=== PATIENT | male | born 1960 | race Hispanic/Latino ===

== ENCOUNTER 2017-11-24 09:55 | Inpatient (IN) | payer MEDICAID, OTHER ==
[2017-11-24 10:06] VITALS: BMI 26.4
[2017-11-24] MEDS ORDERED: Iodixanol 320 MG/ML 100 ML BOTTLE IV ONE (10:13)
--- NOTE | 2017-11-24 10:26 | C.PDOC ---
History Of Present Illness 56-year-old male, presents to the emergency department by ambulance with complaints of altered mental status. Patient was last known well at 22:00 last night. Patient states at 10:30 he developed tingling and numbness in the left arm, after which he tried sleeping, but could not. At 02:00 this morning, patient got up and felt tired, with weakness in his left arm and leg, causing him to fall, sustaining injuries to his left knee, and L chest wall. Patient denies any loss of consciousness or head injuries. Patient woke up in the morning, and symptoms persisted, resulting in him calling his brother, who called 911. En route, patient was awake and alert, with slurred speech and left facial droop. Time Seen by Provider: 11/24/17 10:00 Chief Complaint (Nursing): Weakness/Neurological Deficit History Per: Patient History/Exam Limitations: no limitations Onset/Duration Of Symptoms: Hrs Current Symptoms Are (Timing): Still Present Past Medical History Reviewed: Historical Data, Nursing Documentation, Vital Signs Vital Signs: Last Vital Signs Temp 99.1 F 11/24/17 09:55 Pulse 86 11/24/17 11:09 Resp 16 11/24/17 11:09 BP 194/113 H 11/24/17 11:09 Pulse Ox 98 11/24/17 11:09 Family History: States: No Known Family Hx - Social History Hx Alcohol Use: Yes Hx Substance Use: No - Immunization History Hx Tetanus Toxoid Vaccination: No Hx Influenza Vaccination: No Hx Pneumococcal Vaccination: No Review Of Systems Constitutional: Negative for: Fever, Chills Cardiovascular: Negative for: Chest Pain Respiratory: Negative for: Shortness of Breath Gastrointestinal: Negative for: Vomiting Musculoskeletal: Negative for: Back Pain Neurological: Positive for: Weakness, Numbness, Incoordination, Change in Speech , Altered Mental Status. Negative for: Headache Physical Exam - Physical Exam Appears: Non-toxic, No Acute Distress Skin: Warm, Dry, No Rash, Ecchymosis (Left chest wall and L knee) Head: Atraumatic, No Tenderness, No Swelling Eye(s): bilateral: Normal Inspection, PERRL, EOMI Oral Mucosa: Moist Tongue: Normal Appearing Neck: Normal ROM Chest: Symmetrical Cardiovascular: Rhythm Regular, No Murmur Respiratory: Normal Breath Sounds, No Accessory Muscle Use Gastrointestinal/Abdominal: Soft, No Tenderness Extremity: No Deformity, No Swelling Pulses: Left Carotid: Normal, Right Carotid: Normal Neurological/Psych: Oriented x3, No Normal Speech (Slurred speech), Normal Cognition, No Normal Motor (weakness of left arm and leg), Normal Sensation, Dysarthria, Other (Left facial droop. (+)weakness and lack of coordination in L arm and L leg. See NIH) Extremity: Right: No Drift, Left: Drift Before 10 Secs, Upper: No Drift, Drift Before 10 Secs, Lower: No Drift, Drift Before 10 Secs ED Course And Treatment - Laboratory Results Result Diagrams: 11/24/17 10:33 11/24/17 10:34 Lab Interpretation: No Acute Changes Interpretation Of Abnormal: Mild elevation of WBC and glucose ECG: Interpreted By Ny ECG Rhythm: Sinus Rhythm (with anterior and inferior infarcts) ECG Interpretation: Abnormal O2 Sat by Pulse Oximetry: 97 (RA) Pulse Ox Interpretation: Normal - Radiology CXR: Interpreted by Ny CXR Interpretation: Yes: No Acute Disease - CT Scan/US CT Head Other Rad Studies (CT/US): Read By Radiologist, Radiology Report Reviewed CT/US Interpretation: Accession No. : [id number]. Patient Name / ID : NOMAN ANDERSON / [id number]. Exam Date : 11/24/2017 10:08:32 ( Approved ). Study Comment : Sex / Age : M / 56Y. Creator : Mirella Gonzalez MD. Dictator : Mirella Gonzalez MD. Customs Manager : Fuel Cell Binder : Mirella Gonzalez MD. Approver2 : Report Date : 11/24/2017 10:25:59. My Comment : . PROCEDURE: CT HEAD WITHOUT CONTRAST. HISTORY: Code Stroke. COMPARISON: None available. TECHNIQUE: Axial computed tomography images were obtained through the head/brain without intravenous contrast. Radiation dose: Total exam DLP = 1013.42 mGy-cm. This CT exam was performed using one or more of the following dose reduction techniques: Automated exposure control, adjustment of the mA and/or kV according to patient size, and/or use of iterative reconstruction technique. FINDINGS: HEMORRHAGE: No intracranial hemorrhage. BRAIN: Diffuse atrophy with prominence of the ventricles and sulci noted. No mass effect or edema. Numerous sub cm lacunar infarcts including bilateral basal ganglia and thalami. Scattered periventricular and subcortical white matter hypodensities, which are nonspecific, but often seen with chronic microvascular ischemic disease. Please note that MRI with diffusion imaging is more sensitive in the detection of acute ischemic event. VENTRICLES: No hydrocephalus. CALVARIUM: Unremarkable. PARANASAL SINUSES: Mucosal thickening of the left greater than right maxillary sinuses. MASTOID AIR CELLS : Unremarkable as visualized. No inflammatory changes. OTHER FINDINGS: Opacification of bilateral external auditory canals, likely cerumen. IMPRESSION : Numerous sub cm lacunar infarcts including bilateral basal ganglia and thalami. Scattered periventricular and subcortical white matter hypodensities, which are nonspecific, but often seen with chronic microvascular ischemic disease. Please note that MRI with diffusion imaging is more sensitive in the detection of acute ischemic event. Findings discussed with Dr. Rodriguez on at 10:[address] Neck/Brain Other Rad Studies (CT/US): Read By Radiologist, Radiology Report Reviewed CT/US Interpretation: Accession No. : [id number]. Patient Name / ID : NOMAN ANDERSON / [id number]. Exam Date : 11/24/2017 10:16:35 ( Approved ). Study Comment : Sex / Age : M / 56Y. Creator : Cheng Akers MD. Dictator : Customs Manager : Fuel Cell Binder : Cheng Akers MD. Approver2 : Report Date : 11/24/2017 10:45:10. My Comment : . PROCEDURE: CTA of the neck neck and brain dated 11/24/2017. HISTORY: Stroke alert. COMPARISON: Correlation made with concurrent CT scan brain. TECHNIQUE: Contiguous helical/ transaxial images of the neck were obtained from the level of the skull-base to the superior mediastinum in the arteriographic phase of enhancement. Coronal and sagittal reformats or also generated. IV contrast dose: 100 cc Visipaque 320. Radiation Dose - DLP: 634.27 mGy-cm. This CT exam was performed using one or more of the following dose reduction techniques: Automated exposure control, adjustment of the mA and/or kV according to patient size, and/or use of iterative reconstruction technique. FINDINGS: There is mild partially calcified atherosclerotic plaque seen along aortic arch and to a lesser degree at the origins of the great vessels. The the left common carotid artery is patent. There are partially calcified atherosclerotic plaque changes seen at the distal left common carotid artery/bifurcation extending into the proximal left internal carotid artery resulting in narrowing estimated at approximately 60 %. The right common carotid artery is widely patent with some minor plaque seen along the carotid bifurcation that does not result in any significant stenosis. There is a small plaques along the distal left internal carotid artery that prior to entering the petrous canal. The remaining distal internal carotid arteries including the petrous, cavernous, and supraclinoid segments are widely patent despite some minimal calcified plaque along the left carotid siphon. There is mild asymmetry of the vertebral arteries left-sided which is slightly larger in caliber - more dominant than the right of. Basilar artery is patent. The visualized major branches of the [place] also patent. . The distal anterior middle and posterior cerebral arteries are relatively symmetric. No evidence of large aneurysm nor vascular malformation. Mild to significant multilevel degenerative spondylosis of the cervical spine. The the. IMPRESSION: Atherosclerotic plaque changes involving the left carotid bifurcation and extending into the left internal carotid artery. Changes result in narrowing estimated at approximately 60 %. Carotid Doppler ultrasound could be performed to confirm percent diameter stenosis. No evidence of occlusion or significant stenosis of the visualized cerebral circulation as described. See above discussion for additional details and findings. Progress Note: Patient presents with evidence of an ischemic cerebral infarct that occurred outside of the window for TPA administraion. CT angio and MRI ordered. Reevaluation Time: 11:48 Reassessment Condition: Unchanged - Physician Consult Information Physician Contacted: Kaleigh Mei Outcome Of Conversation: She evaluated patient in ED. Case referred to the interventional radiologist. Patient to be admitted to Telemetry. Patient to be admitted to the hospitalist service. NIHSS Stroke Scale 2 - Date/Time Evaluation Performed Date Performed: 11/24/17 Time Performed: 10:10 When Was NIHSS Performed: Baseline - How Severe is the Stroke Level of Consciousness: 0=Alert LOC to Questions: 0=Both comments correct LOC to commands: 0=Obeys both correctly Best Gaze: 0=Normal Visual: 0=No visual loss Facial: 2=Partial (lower face paralysis) Motor Arm - Left: 1=Drift noted before 10 sec Motor Arm - Right: 0=No drift Motor Leg - Left: 1=Drift before 5 sec Motor Leg - Right: 0=No drift Limb Ataxia: 1=Present Upper or Lower Sensory: 0=Normal Best Language: 0=No aphasia Dysarthia: 1=Mild to moderate slurring Extinction & Inattention (Neglect): 0=Normal, no object Score: 6 Severity Of Stroke: 5-15 = Moderate Stroke Medical Decision Making Medical Decision Making: Plan: * Type and Screen * CT Angio/Chest * EKG * CMP, HGB A1C, Lipid Panel, Trop * CBC, PTT/PT * Chest X-Ray * Aspirin * Reassess and Disposition Disposition - Disposition Disposition: HOSPITALIZED Disposition Time: 11:51 Condition: STABLE - POA Present On Arrival: None - Clinical Impression Clinical Impression: Ischemic stroke - Scribe Statement The provider has reviewed the documentation as recorded by the Scribe (Christel Roche) All medical record entries made by the Scribe were at my direction and personally dictated by me. I have reviewed the chart and agree that the record accurately reflects my personal performance of the history, physical exam, medical decision making, and the department course for this patient. I have also personally directed, reviewed, and agree with the discharge instructions and disposition.
[2017-11-24 10:35] LABS: PROTHROMBIN TIME 11.3 SECONDS (9.7-12.2)
[2017-11-24 10:36] LABS: BASO # 0.1 K/uL (0.0-0.2); BASO % 0.8 % (0.0-2.0); EOS % 0.2 % (0.0-4.0); HEMOGLOBIN 16.7 g/dL (12.0-18.0); LYMPH # 1.3 K/uL (1.0-4.3); LYMPH % 10.5 % (20.0-40.0); MEAN CELL VOLUME 93.5 fL (80.0-94.0); MEAN CORPUSCULAR HEMOGLOBIN 33.3 pg (27.0-31.0); MEAN CORPUSCULAR HGB CONC 35.6 g/dL (33.0-37.0); MEAN PLATELET VOLUME 7.2 fL (7.2-11.7); MONO # 0.9 K/uL (0.0-0.8); MONO % 7.2 % (0.0-10.0); NEUT # 10.1 K/uL (1.8-7.0); NEUT % 81.3 % (50.0-75.0); NRBC % 0.1 % (0.0-2.0); RED CELL DISTRIBUTION WIDTH 13.3 % (11.5-14.5); WHITE BLOOD COUNT 12.4 K/uL (4.8-10.8)
[2017-11-24 10:46] LABS: ALB/GLOB RATIO 1.1 (1.0-2.1); ALBUMIN 4.3 g/dL (3.5-5.0); ALT/SGPT 24 U/L (21-72); AST/SGOT 63 U/L (17-59); BLOOD UREA NITROGEN 11 mg/dL (9-20); CALCIUM 9.1 mg/dl (8.6-10.4); GFR AFRICAN-AMERICAN > 60; GFR NON-AFRICAN AMERICAN > 60; HDL CHOLESTEROL 60 mg/dL (30-70)
--- NOTE | 2017-11-24 10:46 | CT ---
PROCEDURE: CTA of the neck neck and brain dated 11/24/2017. HISTORY: Stroke alert COMPARISON: Correlation made with concurrent CT scan brain. TECHNIQUE: Contiguous helical/transaxial images of the neck were obtained from the level of the skull-base to the superior mediastinum in the arteriographic phase of enhancement. Coronal and sagittal reformats or also generated. IV contrast dose: 100 cc Visipaque 320 Radiation Dose - DLP: 634.27 mGy-cm This CT exam was performed using one or more of the following dose reduction techniques: Automated exposure control, adjustment of the mA and/or kV according to patient size, and/or use of iterative reconstruction technique. FINDINGS: There is mild partially calcified atherosclerotic plaque seen along aortic arch and to a lesser degree at the origins of the great vessels. The the left common carotid artery is patent. There are partially calcified atherosclerotic plaque changes seen at the distal left common carotid artery/bifurcation extending into the proximal left internal carotid artery resulting in narrowing estimated at approximately 60 %. The right common carotid artery is widely patent with some minor plaque seen along the carotid bifurcation that does not result in any significant stenosis. There is a small plaques along the distal left internal carotid artery that prior to entering the petrous canal. The remaining distal internal carotid arteries including the petrous, cavernous, and supraclinoid segments are widely patent despite some minimal calcified plaque along the left carotid siphon. There is mild asymmetry of the vertebral arteries left-sided which is slightly larger in caliber - more dominant than the right of. Basilar artery is patent. The visualized major branches of the [place] also patent. . The distal anterior middle and posterior cerebral arteries are relatively symmetric. No evidence of large aneurysm nor vascular malformation. Mild to significant multilevel degenerative spondylosis of the cervical spine. The the IMPRESSION: Atherosclerotic plaque changes involving the left carotid bifurcation and extending into the left internal carotid artery. Changes result in narrowing estimated at approximately 60 %. Carotid Doppler ultrasound could be performed to confirm percent diameter stenosis No evidence of occlusion or significant stenosis of the visualized cerebral circulation as described See above discussion for additional details and findings.
[2017-11-24 10:57] LABS: LDL CHOLESTEROL 92 mg/dL (0-129)
--- NOTE | 2017-11-24 12:23 | CP.PCM.CON ---
History of Present Illness - History of Present Illness History of Present Illness: 56 yr old male who came in as code stroke, but not TPA candidate due to onset of symptoms outside the TPA window. Maria Del Rosario si a 56 yr old amle who started to have left arm and leg weakness last night at 22:00, with tingling and numbness. He went back to sleep, and then wokr up at 2 am, tried to get up and fell due to weakness, sustaining injuries to left knee, hand and chest wall. There was no report of tonic clonic activity or urinary incontinence. HE woke up this morning, still on the ground and called his brother at about 930 am. When his family found him, he was on the ground with dysarthria and left facial droop, which persists. On my exam, patient was answering questions but was dysarthric. NIH: stroke scale is 11 points. he has sensory and motor loss. on my exam, different from [facility] ER attending, he had decreased ft, pin in the left upper and lower extremity. PMH/PSH: FH/SH: alcohol use, no tobacco. All: nkda. On exam: aaox3. pupils 3mm-2mm with light. eomi. Cn 2-12 normal. +left facial droop. motor: tone normal. strength: left valuation consultant is 2/5, and he is able to lift arm, but it falls to bed within 3 seconds. left leg quite weak at 3/5, with drift within 3 seconds. sensory: extinguishes on left side, arm and leg. Gait not tested. F/n : dysmetria on left arm. +2 dtr ul and ll bl. Toes downgoing, no clonus. Past Patient History - Past Social History Smoking Status: Heavy Smoker > 10 Cigarettes Daily - PSYCHIATRIC Hx Substance Use: No - SURGICAL HISTORY Hx Surgeries: No Meds Allergies/Adverse Reactions: Allergies Allergy/AdvReac Type Severity Reaction Status Date / Time No Known Allergies Allergy Verified 11/24/17 10:04 Results - Vital Signs Recent Vital Signs: Last Vital Signs Temp 99.1 F 11/24/17 09:55 Pulse 84 11/24/17 11:54 Resp 20 11/24/17 11:54 BP 186/107 H 11/24/17 11:54 Pulse Ox 98 11/24/17 11:54 - Labs Result Diagrams: 11/24/17 10:33 11/24/17 10:34 Labs: Laboratory Results - last 24 hr 11/24/17 11/24/17 11/24/17 10:03 10:08 10:32 WBC RBC Hgb Hct MCV MCH MCHC RDW Plt Count MPV Neut % (Auto) Lymph % (Auto) [place] % (Auto) Eos % (Auto) Baso % (Auto) Neut # (Auto) Lymph # (Auto) [place] # (Auto) Eos # (Auto) Baso # (Auto) PT 11.3 INR 1.0 APTT 30 Sodium Potassium Chloride Carbon Dioxide Anion Gap BUN Creatinine Est GFR ( Amer) Est GFR (Non-Af Amer) POC Glucose (mg/dL) 158 H Random Glucose Calcium Total Bilirubin AST ALT Alkaline Phosphatase Troponin I Total Protein Albumin Globulin Albumin/Globulin Ratio Triglycerides Cholesterol LDL Cholesterol Direct HDL Cholesterol Blood Type A POSITIVE Antibody Screen Negative 11/24/17 11/24/17 10:33 10:34 WBC 12.4 H RBC 5.00 Hgb 16.7 Hct 46.8 MCV 93.5 MCH 33.3 H MCHC 35.6 RDW 13.3 Plt Count 240 MPV 7.2 Neut % (Auto) 81.3 H Lymph % (Auto) 10.5 L [place] % (Auto) 7.2 Eos % (Auto) 0.2 Baso % (Auto) 0.8 Neut # (Auto) 10.1 H Lymph # (Auto) 1.3 [place]ven # (Auto) 0.9 H Eos # (Auto) 0.0 Baso # (Auto) 0.1 PT INR APTT Sodium 133 Potassium 4.2 Chloride 95 L Carbon Dioxide 27 Anion Gap 16 BUN 11 Creatinine 0.8 Est GFR ( Amer) > 60 Est GFR (Non-Af Amer) > 60 POC Glucose (mg/dL) Random Glucose 167 H Calcium 9.1 Total Bilirubin 1.0 AST 63 H ALT 24 Alkaline Phosphatase 86 Troponin I 0.0170 Total Protein 8.1 Albumin 4.3 Globulin 3.8 Albumin/Globulin Ratio 1.1 Triglycerides 48 Cholesterol 168 LDL Cholesterol Direct 92 HDL Cholesterol 60 Blood Type Antibody Screen - Imaging and Cardiology CT scan - head Status: Image reviewed by me, Report reviewed by me (Ct head: shows old lacune in left basal ganglia. ) Additional comment: CTA : shows 60% occlusion in the Proximal left ica. Right Ica is normal. Left sided vertbral is larger. Assessment & Plan - Assessment and Plan (Free Text) Assessment: 56 yr old male with new onset what appears to be ischemic/embolic right mca stroke, with significant stenosis of the left ICA, who is not TPA candidate at this time. neurointerventionalist was called and he does not believe the stenosis is of a caliber that would benefit from IV tpa. Plan: 1. Admit to tele. 2. Keep BP at 180-190/90 3. IV fluids with normal saline. 4. MRI brain without contrast. 5. Dysphagia/speech/physical therapy 6. start aspirin at 325 mg po daily. 7. Vascular consult to evaluate stenosis. thank you. Our team will follow.
--- NOTE | 2017-11-24 12:27 | RAD ---
HISTORY: stroke alert COMPARISON: None available. TECHNIQUE: Chest, one view. FINDINGS: Examination limited by habitus and patient obliquity. LUNGS: Right costophrenic angles excluded from view. Right hilar/infrahilar patchy opacities, possibly atelectasis or infiltrate. Correlate clinically. Please note that chest x-ray has limited sensitivity for the detection of pulmonary masses. PLEURA: No significant pleural effusion identified. No definite pneumothorax . CARDIOVASCULAR: Heart size appears within normal limits. OSSEOUS STRUCTURES: No acute osseous abnormality identified. VISUALIZED UPPER ABDOMEN: Unremarkable. OTHER FINDINGS: None. IMPRESSION: Right hilar/infrahilar patchy opacities, possibly atelectasis or infiltrate. Correlate clinically.
--- NOTE | 2017-11-24 12:57 | CP.PCM.HP ---
<Sourav Best - Last Filed: 11/24/17 18:57> History of Present Illness - History of Present Illness History of Present Illness: PGY-1 H&P for Dr. Carreon CC: Weakness This is a 56 year old male with no PMHx who comes in with left sided weakness. Patient reports that at around 11 PM last night, he felt some tingling sensation on the left side of his face around his jaw. He drank some water and went to sleep. Patient then woke up at 2 AM this morning and tried to get out of bed. Patient immediately proceeded to fall down and hit the left side of his body. Patient could not get himself up. He laid there until he was able to call his brother who lives nearby and called an ambulance. Patient reports that the paresthesia has improved but reports continued weakness. Denies changes in vision, headache, loss of consciousness, dizziness, chest pain, dyspnea, palpitations. Patient reports that he is tired because of his poor sleep. PMHx: Denies PSHx: Denies Allergies: NKA Social: Current smoker 1/2 ppd for the last 20-30 years. Social drinker. Denies drugs. Lives alone and is not employed. Family Hx: Mother with two TIA PMD: denies Home meds: denies Present on Admission - Present on Admission Any Indicators Present on Admission: No Review of Systems - Constitutional Constitutional: absent: Chills, Fever, Headache - EENT Eyes: absent: Change in Vision Ears: absent: Decreased Hearing Nose/Mouth/Throat: absent: Nasal Congestion - Cardiovascular Cardiovascular: absent: Chest Pain - Respiratory Respiratory: Cough. absent: Dyspnea, Wheezing - Gastrointestinal Gastrointestinal: absent: Abdominal Pain, Constipation, Diarrhea, Nausea, Vomiting - Genitourinary Genitourinary: absent: Dysuria - Musculoskeletal Musculoskeletal: Muscle Weakness - Integumentary Integumentary: absent: Rash - Neurological Neurological: Tremor, Weakness. absent: Dizziness - Psychiatric Psychiatric: absent: Anxiety - Endocrine Endocrine: absent: Palpitations Past Patient History - Past Social History Smoking Status: Heavy Smoker > 10 Cigarettes Daily - PSYCHIATRIC Hx Substance Use: No - SURGICAL HISTORY Hx Surgeries: No Meds Allergies/Adverse Reactions: Allergies Allergy/AdvReac Type Severity Reaction Status Date / Time No Known Allergies Allergy Verified 11/24/17 10:04 Physical Exam - Constitutional Appears: No Acute Distress - Head Exam Head Exam: ATRAUMATIC, NORMOCEPHALIC - Eye Exam Additional comments: Right pupil larger than left pupil. They were both reactive to light. EOMI - ENT Exam ENT Exam: Mucous Membranes Moist - Respiratory Exam Additional comments: Coarse breath sounds bilaterally - Cardiovascular Exam Cardiovascular Exam: REGULAR RHYTHM, +S1, +S2 - GI/Abdominal Exam GI & Abdominal Exam: Normal Bowel Sounds, Soft. absent: Distended, Guarding, Tenderness - Extremities Exam Extremities exam: Positive for: pedal pulses present. Negative for: pedal edema Additional comments: Injuries seen in all extremities s/p fall Poor feet care Ulcer on sole of left foot - Neurological Exam Neurological exam: Alert, Oriented x3 Additional comments: CN II-XII intact with exception of left sided facial droop and weakness of left sided facial muscles. Muscle strength diminished on left upper and lower extremities compared to the right. Poor endurance with drifting seen on the left upper and lower extremities. Sensations diminished on the left versus the right upper and lower extremities. Abnormal heel to kitchen with the left leg. Abnormal finger to nose test on the left. Equivocal plantar responses No clonus. Right foot contracted. - Skin Skin Exam: Dry, Warm Additional comments: Fall injuries sustained on all extremities Poor feet care with ulcer on sole of left foot Results - Vital Signs Recent Vital Signs: Last Vital Signs Temp 99.1 F 11/24/17 09:55 Pulse 84 11/24/17 11:54 Resp 20 11/24/17 11:54 BP 186/107 H 11/24/17 11:54 Pulse Ox 98 11/24/17 11:54 - Labs Result Diagrams: 11/24/17 10:33 11/24/17 10:34 Labs: Laboratory Results - last 24 hr 11/24/17 11/24/17 11/24/17 10:03 10:08 10:32 WBC RBC Hgb Hct MCV MCH MCHC RDW Plt Count MPV Neut % (Auto) Lymph % (Auto) [place] % (Auto) Eos % (Auto) Baso % (Auto) Neut # (Auto) Lymph # (Auto) [place] # (Auto) Eos # (Auto) Baso # (Auto) PT 11.3 INR 1.0 APTT 30 Sodium Potassium Chloride Carbon Dioxide Anion Gap BUN Creatinine Est GFR ( Amer) Est GFR (Non-Af Amer) POC Glucose (mg/dL) 158 H Random Glucose Calcium Total Bilirubin AST ALT Alkaline Phosphatase Troponin I Total Protein Albumin Globulin Albumin/Globulin Ratio Triglycerides Cholesterol LDL Cholesterol Direct HDL Cholesterol Blood Type A POSITIVE Antibody Screen Negative 11/24/17 11/24/17 10:33 10:34 WBC 12.4 H RBC 5.00 Hgb 16.7 Hct 46.8 MCV 93.5 MCH 33.3 H MCHC 35.6 RDW 13.3 Plt Count 240 MPV 7.2 Neut % (Auto) 81.3 H Lymph % (Auto) 10.5 L [place] % (Auto) 7.2 Eos % (Auto) 0.2 Baso % (Auto) 0.8 Neut # (Auto) 10.1 H Lymph # (Auto) 1.3 [place] # (Auto) 0.9 H Eos # (Auto) 0.0 Baso # (Auto) 0.1 PT INR APTT Sodium 133 Potassium 4.2 Chloride 95 L Carbon Dioxide 27 Anion Gap 16 BUN 11 Creatinine 0.8 Est GFR ( Amer) > 60 Est GFR (Non-Af Amer) > 60 POC Glucose (mg/dL) Random Glucose 167 H Calcium 9.1 Total Bilirubin 1.0 AST 63 H ALT 24 Alkaline Phosphatase 86 Troponin I 0.0170 Total Protein 8.1 Albumin 4.3 Globulin 3.8 Albumin/Globulin Ratio 1.1 Triglycerides 48 Cholesterol 168 LDL Cholesterol Direct 92 HDL Cholesterol 60 Blood Type Antibody Screen Assessment & Plan - Assessment and Plan (Free Text) Plan: Code Stroke Neurology consult, Dr. Mei, help appreciated Head CT: Diffuse atrophy with prominence of the ventricles and sulci noted. No mass effect or edema. Numerous sub cm lacunar infarcts including bilateral basal ganglia and thalami. Scattered periventricular and subcortical white matter hypodensities, which are nonspecific, but often seen with chronic microvascular ischemic disease. Head/Neck CTA: There are partially calcified atherosclerotic plaque changes seen at the distal left common carotid artery/bifurcation extending into the proximal left internal carotid artery resulting in narrowing estimated at approximately 60 %. Vascular surgery consult Dr. Rosario, help appreciated f/u MRI--patient refused Lipid panel: unremarkable Crestor 40 mg PO HS PT/OT Swallow Eval (NPO until passes) Permissive Hypertension SBP 180-190s. Half normal saline 40 cc/hr Prophylactic Measure NPO until swallow eval Heparin 5000 units SC Q8 Accuchecks Q6H since patient is NPO Case DW Dr. Velma Best PGY-1 <Fuad Carreon H - Last Filed: 11/25/17 07:33> Results - Vital Signs Recent Vital Signs: Last Vital Signs Temp 98.7 F 11/25/17 04:55 Pulse 79 11/25/17 04:55 Resp 20 11/25/17 04:55 BP 189/104 H 11/25/17 04:55 Pulse Ox 98 11/25/17 04:55 - Labs Result Diagrams: 11/24/17 10:33 11/24/17 10:34 Labs: Laboratory Results - last 24 hr 11/24/17 11/24/17 11/24/17 10:03 10:08 10:32 WBC RBC Hgb Hct MCV MCH MCHC RDW Plt Count MPV Neut % (Auto) Lymph % (Auto) [place] % (Auto) Eos % (Auto) Baso % (Auto) Neut # (Auto) Lymph # (Auto) [place] # (Auto) Eos # (Auto) Baso # (Auto) PT 11.3 INR 1.0 APTT 30 Sodium Potassium Chloride Carbon Dioxide Anion Gap BUN Creatinine Est GFR ( Amer) Est GFR (Non-Af Amer) POC Glucose (mg/dL) 158 H Random Glucose Calcium Total Bilirubin AST ALT Alkaline Phosphatase Total Creatine Kinase CK-MB (Mass) Troponin I Total Protein Albumin Globulin Albumin/Globulin Ratio Triglycerides Cholesterol LDL Cholesterol Direct HDL Cholesterol Free T4 TSH 3rd Generation Urine Opiates Screen Urine Methadone Screen Ur Barbiturates Screen Ur Phencyclidine Scrn Ur Amphetamines Screen U Benzodiazepines Scrn U Oth Cocaine Metabols U Cannabinoids Screen Blood Type A POSITIVE Antibody Screen Negative 11/24/17 11/24/17 11/24/17 10:33 10:34 13:47 WBC 12.4 H RBC 5.00 Hgb 16.7 Hct 46.8 MCV 93.5 MCH 33.3 H MCHC 35.6 RDW 13.3 Plt Count 240 MPV 7.2 Neut % (Auto) 81.3 H Lymph % (Auto) 10.5 L [place] % (Auto) 7.2 Eos % (Auto) 0.2 Baso % (Auto) 0.8 Neut # (Auto) 10.1 H Lymph # (Auto) 1.3 [place] # (Auto) 0.9 H Eos # (Auto) 0.0 Baso # (Auto) 0.1 PT INR APTT Sodium 133 Potassium 4.2 Chloride 95 L Carbon Dioxide 27 Anion Gap 16 BUN 11 Creatinine 0.8 Est GFR ( Amer) > 60 Est GFR (Non-Af Amer) > 60 POC Glucose (mg/dL) Random Glucose 167 H Calcium 9.1 Total Bilirubin 1.0 AST 63 H ALT 24 Alkaline Phosphatase 86 Total Creatine Kinase CK-MB (Mass) Troponin I 0.0170 Total Protein 8.1 Albumin 4.3 Globulin 3.8 Albumin/Globulin Ratio 1.1 Triglycerides 48 Cholesterol 168 LDL Cholesterol Direct 92 HDL Cholesterol 60 Free T4 TSH 3rd Generation 9.13 H Urine Opiates Screen Negative Urine Methadone Screen Negative Ur Barbiturates Screen Negative Ur Phencyclidine Scrn Negative Ur Amphetamines Screen Negative U Benzodiazepines Scrn Negative U Oth Cocaine Metabols Negative U Cannabinoids Screen Negative Blood Type Antibody Screen 11/24/17 11/24/17 11/24/17 15:11 19:39 21:38 WBC RBC Hgb Hct MCV MCH MCHC RDW Plt Count MPV Neut % (Auto) Lymph % (Auto) [place] % (Auto) Eos % (Auto) Baso % (Auto) Neut # (Auto) Lymph # (Auto) [place] # (Auto) Eos # (Auto) Baso # (Auto) PT INR APTT Sodium Potassium Chloride Carbon Dioxide Anion Gap BUN Creatinine Est GFR ( Amer) Est GFR (Non-Af Amer) POC Glucose (mg/dL) 125 H Random Glucose Calcium Total Bilirubin AST ALT Alkaline Phosphatase Total Creatine Kinase 1114 H CK-MB (Mass) 2.89 Troponin I 0.0170 Total Protein Albumin Globulin Albumin/Globulin Ratio Triglycerides Cholesterol LDL Cholesterol Direct HDL Cholesterol Free T4 1.05 TSH 3rd Generation Urine Opiates Screen Urine Methadone Screen Ur Barbiturates Screen Ur Phencyclidine Scrn Ur Amphetamines Screen U Benzodiazepines Scrn U Oth Cocaine Metabols U Cannabinoids Screen Blood Type Antibody Screen 11/24/17 11/25/17 23:18 06:34 WBC RBC Hgb Hct MCV MCH MCHC RDW Plt Count MPV Neut % (Auto) Lymph % (Auto) [place] % (Auto) Eos % (Auto) Baso % (Auto) Neut # (Auto) Lymph # (Auto) [place] # (Auto) Eos # (Auto) Baso # (Auto) PT INR APTT Sodium Potassium Chloride Carbon Dioxide Anion Gap BUN Creatinine Est GFR ( Amer) Est GFR (Non-Af Amer) POC Glucose (mg/dL) 120 H Random Glucose Calcium Total Bilirubin AST ALT Alkaline Phosphatase Total Creatine Kinase 1057 H CK-MB (Mass) 3.15 Troponin I 0.0180 Total Protein Albumin Globulin Albumin/Globulin Ratio Triglycerides Cholesterol LDL Cholesterol Direct HDL Cholesterol Free T4 TSH 3rd Generation Urine Opiates Screen Urine Methadone Screen Ur Barbiturates Screen Ur Phencyclidine Scrn Ur Amphetamines Screen U Benzodiazepines Scrn U Oth Cocaine Metabols U Cannabinoids Screen Blood Type Antibody Screen Attending/Attestation - Attestation I have personally seen and examined this patient.: Yes I have fully participated in the care of the patient.: Yes I have reviewed all pertinent clinical information: Yes Notes (Text): 11/25/17 07:33 Medical attending: Patient was seen and examined in bed 7 of the ER yesterday. I saw the patient with the medical payment poster. I reviewed the above note by the resident and agree Upon inspection the patient immediately has left facial drooping he is able to function with his right hand and his right arm however his left hand grasp is very minimal. He's is able to hold his left arm up for greater than 5 seconds however he has substantial drifting and he really has to try. He almost touches the bed with his left arm His right leg is able to elevate for greater than 5 seconds, however his left leg medially drops to the bed when I lifted. There is a very strong history of smoking he's been smoking since young age. From what he tells me he does not see a physician regularly. He might have diabetes, he is unsure. The lab work that we got showed an elevated blood sugar Very likely he's had ongoing hypertension as well. A CT scan of the head was done in the emergency room it did not show any areas of hemorrhage or mass effect or edema however did report a lot of lacunar infarcts. There was an MRI ordered by neurology however when the patient was brought down to the MRI he could not tolerate this and was brought back to the emergency room. I explained to the patient that considering the weakness that he 's having that at some point he needs to really consider going back down to the MRI and he says that he understands he's just very frightened by the sound Head and neck CTA was done and suggested that he had some 60% blockage of atherosclerotic plaque in the carotid areas. We will get a carotid Doppler as well as get as well as a vascular evaluation The patient will have additional cardiac enzymes as well as echocardiogram He does have elevated blood pressure, will monitor this for the time being. And slowly over time we could try adding small doses of medication to help slowly lower the blood pressure Thank you very much, Fuad Carreon
[2017-11-24 14:12] LABS: BARBITURATES, UR NEGATIVE (NEGATIVE); BENZODIAZEPINES, UR NEGATIVE (NEGATIVE); OPIATES, UR NEGATIVE (NEGATIVE); PHENCYCLIDINE, UR NEGATIVE (NEGATIVE)
[2017-11-24] MEDS ORDERED: Sodium Chloride 0.45% 1,000 ML IV SCH (15:45)
--- NOTE | 2017-11-24 18:07 | CP.PCM.CON ---
History of Present Illness - History of Present Illness History of Present Illness: Vascular Surgery Consult for Dr. Rosario Reason for Consult: Left carotid stenosis 56 M with no PMHx who presents to [facility] for s/p fall and left sided weakness. Patient reports that last night, he felt some tingling on the left side of his face. Patient went to bed but then woke up at 2 AM this morning. He tried to get out of bed and subsequently fell. Upon falling he hit the left flank on the dresser. Patient sat on the floor until he was able to call his brother. He brother ran over to the house and alled an ambulance. Denies loss of consciousness, dizziness/lightheadedness, headache, chest pain, dyspnea, palpitations, abd pain, nausea/vomiting, diarrhea, incontinence. CT of head shows lacunar infarct. Head/neck MRA suggest 60% of left ICA. PMH: Denies Meds: denies Allergy: NKDA PSH: Denies Family: Mother with two TIA Social: Current smoker 1/2 ppd for the last 20-30 years. Social drinker. Denies drugs. Lives alone and is not employed. Review of Systems - Review of Systems All systems: reviewed and no additional remarkable complaints except (as per HPI ) Past Patient History - Past Social History Smoking Status: Heavy Smoker > 10 Cigarettes Daily - PSYCHIATRIC Hx Substance Use: No - SURGICAL HISTORY Hx Surgeries: No Meds Allergies/Adverse Reactions: Allergies Allergy/AdvReac Type Severity Reaction Status Date / Time No Known Allergies Allergy Verified 11/24/17 10:04 - Medications Medications: Current Medications Aspirin (Ecotrin) 325 mg PO DAILY [facility] Sodium Chloride (Sodium Chloride 0.45%) 1,000 mls @ 40 mls/hr IV .Q24H [facility] Last Admin: 11/24/17 15:45 Dose: 40 mls/hr Rosuvastatin Calcium (Crestor) 40 mg PO [facility] Physical Exam - Constitutional Appears: No Acute Distress - Head Exam Head Exam: ATRAUMATIC, NORMOCEPHALIC - Eye Exam Eye Exam: EOMI Pupil Exam: PERRL - ENT Exam ENT Exam: Mucous Membranes Moist - Neck Exam Neck exam: Positive for: Full Rom - Respiratory Exam Respiratory Exam: NORMAL BREATHING PATTERN - Cardiovascular Exam Cardiovascular Exam: REGULAR RHYTHM - GI/Abdominal Exam GI & Abdominal Exam: Normal Bowel Sounds, Soft. absent: Tenderness - Extremities Exam Extremities exam: Positive for: normal capillary refill, pedal pulses present. Negative for: calf tenderness - Back Exam Additional comments: Left flank with large bruise/wound - Neurological Exam Neurological exam: Alert, Oriented x3 - Expanded Neurological Exam Expanded Patient oriented to: person, place, time Speech: Fluid Speech Cranial nerves: EOM's Intact: Normal, Facial [place] w/Forehead Movement: Normal , Facial [place] w/o Forehead Movement: Normal, Facial Sensation: Normal, Gag Reflex: Normal, Nystagmus: Normal, Tongue Deviation: Normal Neuro motor strength exam: Left Upper Extremity: 4, Right Upper Extremity: 5, Left Lower Extremity: 3, Right Lower Extremity: 5 Coma Scale Eye Opening: SPONTANEOUS Coma Scale Motor Response: OBEYS COMMANDS Coma Scale Verbal: Oriented Coma Scale Total: 15 - Psychiatric Exam Psychiatric exam: Normal Affect, Normal Mood - Skin Skin Exam: Dry, Warm Additional comments: left hand dorsum with wound from fall bilateral knees with mild swelling Results - Vital Signs Recent Vital Signs: Last Vital Signs Temp 99.1 F 11/24/17 09:55 Pulse 86 11/24/17 15:09 Resp 20 11/24/17 15:09 BP 182/108 H 11/24/17 15:09 Pulse Ox 98 11/24/17 15:09 - Labs Result Diagrams: 11/24/17 10:33 11/24/17 10:34 Labs: Laboratory Results - last 24 hr 11/24/17 11/24/17 11/24/17 10:03 10:08 10:32 WBC RBC Hgb Hct MCV MCH MCHC RDW Plt Count MPV Neut % (Auto) Lymph % (Auto) [place] % (Auto) Eos % (Auto) Baso % (Auto) Neut # (Auto) Lymph # (Auto) [place] # (Auto) Eos # (Auto) Baso # (Auto) PT 11.3 INR 1.0 APTT 30 Sodium Potassium Chloride Carbon Dioxide Anion Gap BUN Creatinine Est GFR ( Amer) Est GFR (Non-Af Amer) POC Glucose (mg/dL) 158 H Random Glucose Calcium Total Bilirubin AST ALT Alkaline Phosphatase Troponin I Total Protein Albumin Globulin Albumin/Globulin Ratio Triglycerides Cholesterol LDL Cholesterol Direct HDL Cholesterol Free T4 TSH 3rd Generation Urine Opiates Screen Urine Methadone Screen Ur Barbiturates Screen Ur Phencyclidine Scrn Ur Amphetamines Screen U Benzodiazepines Scrn U Oth Cocaine Metabols U Cannabinoids Screen Blood Type A POSITIVE Antibody Screen Negative 11/24/17 11/24/17 11/24/17 10:33 10:34 13:47 WBC 12.4 H RBC 5.00 Hgb 16.7 Hct 46.8 MCV 93.5 MCH 33.3 H MCHC 35.6 RDW 13.3 Plt Count 240 MPV 7.2 Neut % (Auto) 81.3 H Lymph % (Auto) 10.5 L [place] % (Auto) 7.2 Eos % (Auto) 0.2 Baso % (Auto) 0.8 Neut # (Auto) 10.1 H Lymph # (Auto) 1.3 [place] # (Auto) 0.9 H Eos # (Auto) 0.0 Baso # (Auto) 0.1 PT INR APTT Sodium 133 Potassium 4.2 Chloride 95 L Carbon Dioxide 27 Anion Gap 16 BUN 11 Creatinine 0.8 Est GFR ( Amer) > 60 Est GFR (Non-Af Amer) > 60 POC Glucose (mg/dL) Random Glucose 167 H Calcium 9.1 Total Bilirubin 1.0 AST 63 H ALT 24 Alkaline Phosphatase 86 Troponin I 0.0170 Total Protein 8.1 Albumin 4.3 Globulin 3.8 Albumin/Globulin Ratio 1.1 Triglycerides 48 Cholesterol 168 LDL Cholesterol Direct 92 HDL Cholesterol 60 Free T4 TSH 3rd Generation 9.13 H Urine Opiates Screen Negative Urine Methadone Screen Negative Ur Barbiturates Screen Negative Ur Phencyclidine Scrn Negative Ur Amphetamines Screen Negative U Benzodiazepines Scrn Negative U Oth Cocaine Metabols Negative U Cannabinoids Screen Negative Blood Type Antibody Screen 11/24/17 15:11 WBC RBC Hgb Hct MCV MCH MCHC RDW Plt Count MPV Neut % (Auto) Lymph % (Auto) [place] % (Auto) Eos % (Auto) Baso % (Auto) Neut # (Auto) Lymph # (Auto) [place] # (Auto) Eos # (Auto) Baso # (Auto) PT INR APTT Sodium Potassium Chloride Carbon Dioxide Anion Gap BUN Creatinine Est GFR ( Amer) Est GFR (Non-Af Amer) POC Glucose (mg/dL) Random Glucose Calcium Total Bilirubin AST ALT Alkaline Phosphatase Troponin I Total Protein Albumin Globulin Albumin/Globulin Ratio Triglycerides Cholesterol LDL Cholesterol Direct HDL Cholesterol Free T4 1.05 TSH 3rd Generation Urine Opiates Screen Urine Methadone Screen Ur Barbiturates Screen Ur Phencyclidine Scrn Ur Amphetamines Screen U Benzodiazepines Scrn U Oth Cocaine Metabols U Cannabinoids Screen Blood Type Antibody Screen Assessment & Plan - Assessment and Plan (Free Text) Plan: 56 M s/p CVA, s/p fall, left carotid stenosis RIB Xray Duplex to accurates assess carotid stenosis f/u Neurology recommendations further recs as per Dr. Abraham Jacob PGY1
[2017-11-24 20:11] LABS: CK-MB 2.89 ng/mL (0.0-3.38); TROPONIN I 0.017 ng/mL (0.00-0.120)
[2017-11-24 23:43] LABS: CK-MB 3.15 ng/mL (0.0-3.38); TROPONIN I 0.018 ng/mL (0.00-0.120)
--- NOTE | 2017-11-25 07:43 | CP.PCM.PN ---
Subjective - Date & Time of Evaluation Date of Evaluation: 11/25/17 Time of Evaluation: 07:38 - Subjective Subjective: Mr. Ryder was seen and examined at the bedside. He is alert, oriented. He is able to answer questions appropriately and follow simple commands. He remains with left upper arm drift and lower extremity weakness. He states that he had the MRI yesterday but unable to tolerate it. He further refused pre-medications prior to the procedure. He is currently receiving IVF and on NPO. His current diastolic blood pressure is above 100. There was no untoward events overnight. Objective - Vital Signs/Intake and Output Vital Signs (last 24 hours): Temp Pulse Resp BP Pulse Ox 98.7 F 79 20 189/104 H 98 11/25/17 04:55 11/25/17 04:55 11/25/17 04:55 11/25/17 04:55 11/25/17 04:55 Intake and Output: 11/25/17 11/25/17 06:59 18:59 Intake Total 360 Output Total 300 Balance 60 - Medications Medications: Current Medications Aspirin (Ecotrin) 325 mg PO DAILY [facility] Heparin Sodium (Porcine) (Heparin) 5,000 units SC Q8 [facility] Last Admin: 11/25/17 06:02 Dose: 5,000 units Sodium Chloride (Sodium Chloride 0.45%) 1,000 mls @ 40 mls/hr IV .Q24H [facility] Last Admin: 11/24/17 15:45 Dose: 40 mls/hr Pneumococcal Polyvalent Vaccine (Pneumovax 23 Vaccine) 0.5 ml IM .ONCE ONE Stop: 11/26/17 10:01 Rosuvastatin Calcium (Crestor) 40 mg PO HS [facility] Last Admin: 11/24/17 23:02 Dose: Not Given - Labs Labs: 11/24/17 10:33 11/24/17 10:34 PT 11.3 SECONDS (9.7-12.2) 11/24/17 10:32 INR 1.0 11/24/17 10:32 APTT 30 SECONDS (21-34) 11/24/17 10:32 - Constitutional Appears: No Acute Distress - Head Exam Head Exam: NORMAL INSPECTION - Neurological Exam Neurological Exam: Alert, Awake, Oriented x3 Neuro motor strength exam: Left Upper Extremity: 3, Right Upper Extremity: 5, Left Lower Extremity: 3, Right Lower Extremity: 5 Additional comments: He remains with left arm weakness, able to follow all commands. Assessment and Plan (1) Ischemic stroke Assessment & Plan: Case discussed with Dr. Mei, continue all current medical, physical, occupational, and speech therapies. Maintain permissive HTN with systolic blood pressure of 180 and diastolic blood pressure 100. Maintain IVF, recommends normal saline. Pending echocardiogram and carotid doppler. Recommend dual anti- platelet for his atherosclerosis of the left carotid bifurfication extending to the left ICA, plavix 75 mg PO daily and aspirin 81 mg PO daily. Status: Acute
--- NOTE | 2017-11-25 09:00 | CP.PCM.PN ---
Subjective - Date & Time of Evaluation Date of Evaluation: 11/25/17 Time of Evaluation: 08:45 - Subjective Subjective: Patient was seen and examined by me. He is AAO x 3, answering questions appropriately. The patient reports that overnight he still had the left body weakness. On exam he was able to raise the left arm for > 5 seconds however with some drifting - his arm did NOT hit the bed The patient was also able to slighty raise his left leg however not above 45 degrees. It was a struggle but he did > 5 seconds with drifting. I asked again about getting an MRI - he said he did not want to get MRI even if I premeditate him with ativan or xanax. We are still pending the carotid and echo at this moment. Speech and swallow is comming, he is NPO at this time Also PT/OT On telemetry HR was in the 80s NSR. BP is 180s systolic and 100s diastolic Objective - Vital Signs/Intake and Output Vital Signs (last 24 hours): Temp Pulse Resp BP Pulse Ox 98.7 F 79 20 189/104 H 98 11/25/17 04:55 11/25/17 04:55 11/25/17 04:55 11/25/17 04:55 11/25/17 04:55 Intake and Output: 11/25/17 11/25/17 06:59 18:59 Intake Total 360 Output Total 300 Balance 60 - Medications Medications: Current Medications Aspirin (Aspirin Chewable) 81 mg PO DAILY [facility] 234 BEDS AT THE [facility] Clopidogrel Bisulfate (Plavix) 75 mg PO DAILY COUNTS INCLUDE 234 BEDS AT THE [facility] Heparin Sodium (Porcine) (Heparin) 5,000 units SC Q8 COUNTS INCLUDE 234 BEDS AT THE [facility] Last Admin: 11/25/17 06:02 Dose: 5,000 units Sodium Chloride (Sodium Chloride 0.45%) 1,000 mls @ 40 mls/hr IV .Q24H COUNTS INCLUDE 234 BEDS AT THE [facility] Last Admin: 11/24/17 15:45 Dose: 40 mls/hr Pneumococcal Polyvalent Vaccine (Pneumovax 23 Vaccine) 0.5 ml IM .ONCE ONE Stop: 11/26/17 10:01 Rosuvastatin Calcium (Crestor) 40 mg PO HS COUNTS INCLUDE 234 BEDS AT THE [facility] Last Admin: 11/24/17 23:02 Dose: Not Given - Labs Labs: 11/24/17 10:33 11/24/17 10:34 PT 11.3 SECONDS (9.7-12.2) 11/24/17 10:32 INR 1.0 11/24/17 10:32 APTT 30 SECONDS (21-34) 11/24/17 10:32 - Constitutional Appears: No Acute Distress, Unkempt, Chronically Ill - Head Exam Head Exam: NORMAL INSPECTION, NORMOCEPHALIC - Eye Exam Eye Exam: EOMI - ENT Exam ENT Exam: Mucous Membranes Moist - Respiratory Exam Respiratory Exam: Clear to Ausculation Bilateral, NORMAL BREATHING PATTERN - Cardiovascular Exam Cardiovascular Exam: REGULAR RHYTHM - GI/Abdominal Exam GI & Abdominal Exam: Soft, Normal Bowel Sounds. absent: Firm, Guarding, Rigid, Tenderness - Extremities Exam Extremities Exam: Normal Capillary Refill. absent: Pedal Edema - Neurological Exam Neurological Exam: Alert, Awake, Oriented x3 Neuro motor strength exam: Left Upper Extremity: 4, Right Upper Extremity: 5, Left Lower Extremity: 4, Right Lower Extremity: 5 Additional comments: On exam he was able to raise the left arm for > 5 seconds however with some drifting - his arm did NOT hit the bed The patient was also able to slighty raise his left leg however not above 45 degrees. It was a struggle but he did > 5 seconds with drifting. - Psychiatric Exam Psychiatric exam: Depressed, Flat Affect - Skin Skin Exam: Pallor, Pallor, Warm Assessment and Plan - Assessment and Plan (Free Text) Assessment: Code Stroke - CVA left body weakness 11/25: Now on ASA and Plavix and Crestor. He again refuses MRI. Pending echo and carotid. IVF changed to NSS @ 40 cc/hr Head CT: Diffuse atrophy with prominence of the ventricles and sulci noted. No mass effect or edema. Numerous sub cm lacunar infarcts including bilateral basal ganglia and thalami. Scattered periventricular and subcortical white matter hypodensities, which are nonspecific, but often seen with chronic microvascular ischemic disease. Head/Neck CTA: There are partially calcified atherosclerotic plaque changes seen at the distal left common carotid artery/bifurcation extending into the proximal left internal carotid artery resulting in narrowing estimated at approximately 60 %. Vascular surgery consult Dr. Rosario, help appreciated PT/OT Swallow Eval (NPO until passes) Permissive Hypertension SBP 180-190s. Prophylactic Measure NPO until swallow eval Heparin 5000 units SC Q8 Accuchecks Q6H since patient is NPO
[2017-11-25 09:04] LABS: ALB/GLOB RATIO 1.1 (1.0-2.1); ALBUMIN 3.9 g/dL (3.5-5.0); ALT/SGPT 28 U/L (21-72); AST/SGOT 47 U/L (17-59); BLOOD UREA NITROGEN 13 mg/dL (9-20); CALCIUM 8.6 mg/dl (8.6-10.4); GFR AFRICAN-AMERICAN > 60; GFR NON-AFRICAN AMERICAN > 60; HDL CHOLESTEROL 61 mg/dL (30-70); MAGNESIUM 2.2 mg/dL (1.6-2.3)
[2017-11-25 09:10] LABS: LDL CHOLESTEROL 73 mg/dL (0-129)
[2017-11-25 09:38] LABS: BASO # 0.1 K/uL (0.0-0.2); BASO % 0.7 % (0.0-2.0); EOS # 0.2 K/uL (0.0-0.7); EOS % 1.8 % (0.0-4.0); LYMPH # 2.2 K/uL (1.0-4.3); LYMPH % 26.7 % (20.0-40.0); MEAN CELL VOLUME 95.3 fL (80.0-94.0); MEAN CORPUSCULAR HEMOGLOBIN 33.9 pg (27.0-31.0); MEAN CORPUSCULAR HGB CONC 35.6 g/dL (33.0-37.0); MEAN PLATELET VOLUME 7.3 fL (7.2-11.7); MONO # 0.7 K/uL (0.0-0.8); MONO % 7.9 % (0.0-10.0); NEUT # 5.3 K/uL (1.8-7.0); NEUT % 62.9 % (50.0-75.0); NRBC % 0.1 % (0.0-2.0); RBC 4.75 Mil/uL (4.40-5.90); RED CELL DISTRIBUTION WIDTH 13.9 % (11.5-14.5); WHITE BLOOD COUNT 8.4 K/uL (4.8-10.8)
[2017-11-25 09:39] LABS: HEMOGLOBIN 16.1 g/dL (12.0-18.0)
[2017-11-25] MEDS ORDERED: Aspirin 325 mg EC Tablets PO SCH (10:00)
[2017-11-25] MEDS: Sodium Chloride 0.9% 1,000 ML IV SCH (10:10)
--- NOTE | 2017-11-25 10:37 | RAD ---
PROCEDURE: Radiographs of the chest and bilateral ribs HISTORY: s/p fall COMPARISON: Chest x-ray performed 11/24/17 TECHNIQUE: Frontal radiograph of the chest and multiple oblique radiographs of the bilateral ribs were obtained. FINDINGS: RIGHT RIBS: No appreciable displaced right rib fracture. LEFT RIBS: Question irregularity about the left T10 anterior vertebral body, fracture is not entirely excluded. Otherwise, no appreciable displaced left rib fracture. LUNGS: No focal consolidation. Please note that chest x-ray has limited sensitivity for the detection of pulmonary masses. PLEURA: No significant pleural effusion. No definite pneumothorax. CARDIOVASCULAR: Heart size appears within normal limits. OTHER FINDINGS: None. IMPRESSION: Question irregularity about the left T10 anterior rib, fracture is not entirely excluded. Correlate with physical exam.
--- NOTE | 2017-11-25 11:37 | CP.PCM.PN ---
Subjective - Date & Time of Evaluation Date of Evaluation: 11/25/17 Time of Evaluation: 06:50 - Subjective Subjective: Vascular Surgery- Dr. Rosario Patient seen and examined at bedside this AM. no acute complaints. Still having residual left UE weakness. Denies F/C N/V/D changes in vision or LOC. Objective - Vital Signs/Intake and Output Vital Signs (last 24 hours): Temp Pulse Resp BP Pulse Ox 98 F 87 18 177/106 H 97 11/25/17 08:00 11/25/17 08:00 11/25/17 08:00 11/25/17 08:00 11/25/17 08:00 Intake and Output: 11/25/17 11/25/17 06:59 18:59 Intake Total 360 Output Total 300 Balance 60 - Medications Medications: Current Medications Aspirin (Aspirin Chewable) 81 mg PO DAILY [facility] Clopidogrel Bisulfate (Plavix) 75 mg PO DAILY [facility] Heparin Sodium (Porcine) (Heparin) 5,000 units SC Q8 [facility] Last Admin: 11/25/17 06:02 Dose: 5,000 units Sodium Chloride (Sodium Chloride 0.9%) 1,000 mls @ 40 mls/hr IV .Q24H [facility] Pneumococcal Polyvalent Vaccine (Pneumovax 23 Vaccine) 0.5 ml IM .ONCE ONE Stop: 11/26/17 10:01 Rosuvastatin Calcium (Crestor) 40 mg PO HS [facility] Last Admin: 11/24/17 23:02 Dose: Not Given - Labs Labs: 11/25/17 08:29 11/25/17 08:29 PT 11.3 SECONDS (9.7-12.2) 11/24/17 10:32 INR 1.0 11/24/17 10:32 APTT 34 SECONDS (21-34) 11/25/17 08:29 - Constitutional Appears: Non-toxic, No Acute Distress - Eye Exam Eye Exam: EOMI. absent: Scleral icterus - ENT Exam ENT Exam: Mucous Membranes Moist - Cardiovascular Exam Cardiovascular Exam: +S1, +S2. absent: Bradycardia, Tachycardia - GI/Abdominal Exam GI & Abdominal Exam: Soft. absent: Firm, Guarding, Rigid, Tenderness - Back Exam Back Exam: absent: CVA tenderness (L), CVA tenderness (R) - Neurological Exam Neurological Exam: Alert, Awake, Oriented x3 Neuro motor strength exam: Left Lower Extremity: 2/1 - Skin Skin Exam: Dry, Warm Assessment and Plan - Assessment and Plan (Free Text) Assessment: 56 M s/p CVA, s/p fall, left carotid stenosis; LUE residual weakness L. Carotid 60% stenosis, R. Carotid patent Plan: - f/u carotid duplex and final read - f/u Neurology recommendations - further recs as per Dr. Abraham Javier PGY1
[2017-11-25] MEDS ORDERED: Potassium Chloride 20 mEq/15 ml LIQ UD PO ONE (13:00)
--- NOTE | 2017-11-25 21:10 | CT ---
EXAM: CT Head Without Intravenous Contrast EXAM DATE/TIME: 11/25/2017 7:14 PM CLINICAL HISTORY: 56 years old, male; Injury or trauma; Fall; Initial encounter; Blunt trauma (contusions or hematomas); Additional info: Fall, R/O worsening CVA TECHNIQUE: Axial computed tomography images of the head/brain without intravenous contrast. All CT scans at this facility use one or more dose reduction techniques, viz.: automated exposure control; ma/kV adjustment per patient size (including targeted exams where dose is matched to indication; i.e. head); or iterative reconstruction technique. COMPARISON: CT head 11/24/17 FINDINGS: Brain: There is prominence of sulci gyri and ventricles. There is no midline shift. There is decreased attenuation in periventricular white matter. There are multiple lacunar infarcts bilaterally, unchanged. There are no focal masses. There are no focal hemorrhages. Padilla-white differentiation is visualized. Ventricles: See above Bones/joints: Bones: Cranial vault is intact. Soft tissues: unremarkable Sinuses: There is mucoperiosteal thickening in the left maxillary sinus. Mastoid air cells: Ears and mastoids: Middle ears and mastoids are unremarkable. There is debris in both external auditory canals. Orbits: Orbital contents are unremarkable. IMPRESSION: No acute intracranial abnormality If there is clinical suspicion for acute stroke, MRI may be helpful
--- NOTE | 2017-11-25 21:32 | PCM.FALL ---
Post Fall Progress Note - Post Fall Fall Date: 11/25/17 Fall Time: 19:00 Description of Fall: Patient stated that he was sitting up in bed trying to reach for the urinal when he fell out of bed on to the floor onto his left side. Denies hitting his head. Denies loosing consciousness. - Post Fall Exam Vital Sign: Temp Pulse Resp BP Pulse Ox 98.3 F 84 20 181/98 H 98 11/25/17 16:00 11/25/17 16:00 11/25/17 16:00 11/25/17 16:00 11/25/17 16:00 Skull Exam: Negative for: Scalp wound, Scalp hematoma, Scalp depression, Ridge in skull Eye Exam: Positive for: Pupils equal, Pupils reactive Ear Exam: Negative for: Discharge, Bleeding Nose Exam: Negative for: Discharge, Bleeding Skin Exam: Negative for: Colour, Lacerations, Grazes, Bruising Mouth Exam: Negative for: Tongue bitten, Teeth dislodge Neck Exam: Negative for: Tenderness, Tingling, Weakness Spinal Exam: Negative for: Tenderness, Tingling, Weakness Chest Exam: Negative for: Difficulty breathing, Tenderness in collar bones, Tenderness in ribs Abdomen Exam: Negative for: Tenderness Pelvic Exam: Negative for: Tenderness, Hematuria Arm Exam: Negative for: Deformity, Alteration in range of movement Leg Exam: Negative for: Deformity, Alteration in range of movement Impression/Plan: 56 year old male who presented with right MCA stroke experienced fall and [facility] was called. Patient was found by nurse on the ground lying on his left side. Patient stated that he was sitting up in bed trying to reach for the urinal when he fell out of bed on to the ground and started screaming. Patient was assisted back into bed. Patient denies hitting head or loosing consciousness. Complains of left sided rib pain due to falling on that side. On physical exam, patient is A&Ox3. He is moving all four. PEERL B/L. CN II- XII intact. Decreased strength noticed in left upper and lower extremities. A&P: - Mechanical fall: Due to recent history of CVA will get Head CT - Left side rib pain: Will check EKG to rule out VT or arrhythmia
--- NOTE | 2017-11-26 07:11 | CP.PCM.PN ---
Subjective - Date & Time of Evaluation Date of Evaluation: 11/26/17 Time of Evaluation: 07:08 - Subjective Subjective: Mr. Ryder was seen and examined at the bedside. He is alert, oriented in all spheres. He denies any headache, dizziness, lightheadedness, diplopia, nausea, or vomiting. He claims of being tired due to inability to sleep for 2 nights. He further claims of falling yesterday with his intent to ambulate to the bathroom. He remains with left side weakness with left arm drift. He is on telesitter for patient safety. CT of the scan of the head yesterday showed no acute intracranial abnormality. Objective - Vital Signs/Intake and Output Vital Signs (last 24 hours): Temp Pulse Resp BP Pulse Ox 99.3 F 102 H 90 H 182/93 H 97 11/25/17 23:45 11/25/17 23:45 11/26/17 05:55 11/26/17 05:55 11/25/17 23:45 Intake and Output: 11/26/17 11/26/17 06:59 18:59 Intake Total 640 Balance 640 - Medications Medications: Current Medications Aspirin (Aspirin Chewable) 81 mg PO DAILY [facility] Last Admin: 11/25/17 13:33 Dose: 81 mg Clopidogrel Bisulfate (Plavix) 75 mg PO DAILY [facility] Last Admin: 11/25/17 13:33 Dose: 75 mg Heparin Sodium (Porcine) (Heparin) 5,000 units SC Q8 [facility] Last Admin: 11/26/17 06:01 Dose: 5,000 units Sodium Chloride (Sodium Chloride 0.9%) 1,000 mls @ 40 mls/hr IV .Q24H [facility] Last Admin: 11/25/17 10:10 Dose: 40 mls/hr Pneumococcal Polyvalent Vaccine (Pneumovax 23 Vaccine) 0.5 ml IM .ONCE ONE Stop: 11/26/17 10:01 Rosuvastatin Calcium (Crestor) 40 mg PO HS [facility] Last Admin: 11/25/17 22:12 Dose: 40 mg - Labs Labs: 11/25/17 08:29 11/25/17 08:29 PT 11.3 SECONDS (9.7-12.2) 11/24/17 10:32 INR 1.0 11/24/17 10:32 APTT 34 SECONDS (21-34) 11/25/17 08:29 - Constitutional Appears: No Acute Distress - Head Exam Head Exam: NORMAL INSPECTION - Neurological Exam Neurological Exam: Alert, Awake Neuro motor strength exam: Left Upper Extremity: 3, Right Upper Extremity: 5, Left Lower Extremity: 3, Right Lower Extremity: 5 Additional comments: Neurological unchanged from previous examination, remains with left arm drift and left side weakness. Assessment and Plan (1) Ischemic stroke Assessment & Plan: Case discussed with Dr. Cleaning, continue all current medical, physical, occupational, and speech therapies. Pending carotid ultrasound to determine if vascular intervention for his left ICA. Recommend ambien 5 mg PO QHS for insomnia. Status: Acute
--- NOTE | 2017-11-26 08:16 | CP.PCM.PN ---
Subjective - Date & Time of Evaluation Date of Evaluation: 11/26/17 Time of Evaluation: 06:45 - Subjective Subjective: Vascular Surgery Pt S&E, Fell from bed overnight, no new problems on repeated head CT. Still having residual LUE weakness. No new symptoms seen. No new complaints. Objective - Vital Signs/Intake and Output Vital Signs (last 24 hours): Temp Pulse Resp BP Pulse Ox 99.3 F 102 H 90 H 182/93 H 97 11/25/17 23:45 11/25/17 23:45 11/26/17 05:55 11/26/17 05:55 11/25/17 23:45 Intake and Output: 11/26/17 11/26/17 06:59 18:59 Intake Total 640 Balance 640 - Medications Medications: Current Medications Aspirin (Aspirin Chewable) 81 mg PO DAILY [facility] Last Admin: 11/25/17 13:33 Dose: 81 mg Clopidogrel Bisulfate (Plavix) 75 mg PO DAILY [facility] Last Admin: 11/25/17 13:33 Dose: 75 mg Heparin Sodium (Porcine) (Heparin) 5,000 units SC Q8 [facility] Last Admin: 11/26/17 06:01 Dose: 5,000 units Sodium Chloride (Sodium Chloride 0.9%) 1,000 mls @ 40 mls/hr IV .Q24H [facility] Last Admin: 11/25/17 10:10 Dose: 40 mls/hr Pneumococcal Polyvalent Vaccine (Pneumovax 23 Vaccine) 0.5 ml IM .ONCE ONE Stop: 11/26/17 10:01 Rosuvastatin Calcium (Crestor) 40 mg PO HS [facility] Last Admin: 11/25/17 22:12 Dose: 40 mg Zolpidem Tartrate (Ambien) 5 mg PO HS PRN PRN Reason: Insomnia - Labs Labs: 11/25/17 08:29 11/25/17 08:29 PT 11.3 SECONDS (9.7-12.2) 11/24/17 10:32 INR 1.0 11/24/17 10:32 APTT 34 SECONDS (21-34) 11/25/17 08:29 - Constitutional Appears: Non-toxic, No Acute Distress - Head Exam Head Exam: ATRAUMATIC, NORMOCEPHALIC - Eye Exam Eye Exam: EOMI ( grossly). absent: Scleral icterus - Respiratory Exam Respiratory Exam: NORMAL BREATHING PATTERN. absent: Respiratory Distress - GI/Abdominal Exam GI & Abdominal Exam: Soft. absent: Distended, Tenderness - Neurological Exam Neurological Exam: Alert, Awake, Oriented x3 Neuro motor strength exam: Left Upper Extremity: 3, Right Upper Extremity: 5, Left Lower Extremity: 4, Right Lower Extremity: 5 - Skin Skin Exam: Dry, Warm Assessment and Plan - Assessment and Plan (Free Text) Assessment: 56 M s/p CVA, s/p fall, 60% left carotid stenosis; LUE residual weakness Plan: - f/u carotid duplex and final read - f/u Neurology recommendations D/W Dr. Abraham Boo PGY4
[2017-11-26 08:55] LABS: BASO % 0.5 % (0.0-2.0); EOS # 0.1 K/uL (0.0-0.7); EOS % 1.3 % (0.0-4.0); HEMOGLOBIN 15.6 g/dL (12.0-18.0); LYMPH # 1.8 K/uL (1.0-4.3); LYMPH % 23.2 % (20.0-40.0); MEAN CELL VOLUME 94.7 fL (80.0-94.0); MEAN CORPUSCULAR HEMOGLOBIN 33.7 pg (27.0-31.0); MEAN CORPUSCULAR HGB CONC 35.5 g/dL (33.0-37.0); MEAN PLATELET VOLUME 7.3 fL (7.2-11.7); MONO # 0.8 K/uL (0.0-0.8); MONO % 10.6 % (0.0-10.0); NEUT # 5.1 K/uL (1.8-7.0); NEUT % 64.4 % (50.0-75.0); RBC 4.65 Mil/uL (4.40-5.90); RED CELL DISTRIBUTION WIDTH 13.5 % (11.5-14.5); WHITE BLOOD COUNT 7.9 K/uL (4.8-10.8)
[2017-11-26] MEDS: Sodium Chloride 0.9% 1,000 ML IV SCH (09:15)
[2017-11-26 09:22] LABS: ALB/GLOB RATIO 1.1 (1.0-2.1); ALBUMIN 3.8 g/dL (3.5-5.0); ALT/SGPT 23 U/L (21-72); AST/SGOT 36 U/L (17-59); BLOOD UREA NITROGEN 13 mg/dL (9-20); CALCIUM 8.5 mg/dl (8.6-10.4); GFR AFRICAN-AMERICAN > 60; GFR NON-AFRICAN AMERICAN > 60; MAGNESIUM 2.2 mg/dL (1.6-2.3)
[2017-11-26] MEDS ORDERED: Influenza Vaccine 60 mcg/0.5 mL SYR (4YR UP) IM ONE (10:00)
[2017-11-26] MEDS ORDERED: Pneumococcal 23-Valent Vaccine IM ONE (10:00)
--- NOTE | 2017-11-26 13:46 | CP.PCM.PN ---
Subjective - Date & Time of Evaluation Date of Evaluation: 11/26/17 Time of Evaluation: 13:45 - Subjective Subjective: duplex does not show significant disease in either carotid Objective - Vital Signs/Intake and Output Vital Signs (last 24 hours): Temp Pulse Resp BP Pulse Ox 98.0 F 92 H 20 174/118 H 96 11/26/17 08:21 11/26/17 08:21 11/26/17 08:21 11/26/17 08:21 11/26/17 08:21 Intake and Output: 11/26/17 11/26/17 06:59 18:59 Intake Total 640 Balance 640 - Medications Medications: Current Medications Aspirin (Aspirin Chewable) 81 mg PO DAILY [facility] Last Admin: 11/26/17 10:34 Dose: 81 mg Clopidogrel Bisulfate (Plavix) 75 mg PO DAILY [facility] Last Admin: 11/26/17 10:33 Dose: 75 mg Heparin Sodium (Porcine) (Heparin) 5,000 units SC Q8 [facility] Last Admin: 11/26/17 06:01 Dose: 5,000 units Sodium Chloride (Sodium Chloride 0.9%) 1,000 mls @ 40 mls/hr IV .Q24H [facility] Last Admin: 11/26/17 09:15 Dose: Not Given Rosuvastatin Calcium (Crestor) 40 mg PO HS [facility] Last Admin: 11/25/17 22:12 Dose: 40 mg Zolpidem Tartrate (Ambien) 5 mg PO HS PRN PRN Reason: Insomnia - Labs Labs: 11/26/17 08:43 11/26/17 08:43 PT 11.3 SECONDS (9.7-12.2) 11/24/17 10:32 INR 1.0 11/24/17 10:32 APTT 34 SECONDS (21-34) 11/25/17 08:29
--- NOTE | 2017-11-26 14:43 | CARD ---
APPROVED REPORT EKG Measurement Heart [id number] <Conclusion> Normal sinus rhythm Possible Left atrial enlargement Left anterior fascicular block Inferior infarct, age undetermined Cannot rule out Anterior infarct, age undetermined Abnormal ECG
--- NOTE | 2017-11-26 15:33 | VASCLAB ---
PROCEDURE: HISTORY: code stroke, left carotid stenosis COMPARISON: None available. TECHNIQUE: Grayscale and duplex Doppler evaluation of the cervical carotid and vertebral arteries were performed. The common carotid, carotid bifurcations and cervical Internal Carotid Artery (ICA) and proximal External Carotid Artery (ECA) were evaluated. The vertebral arteries were evaluated for gross patency and flow direction. Report prepared by JODIE Priest FINDINGS: RIGHT CAROTID ARTERIES: 1. Common Carotid Artery: No significant focal plaque formation of the right common carotid artery. Maximum Peak Systolic velocity: 62 cm/sec: End-diastolic velocity 9 cm/sec. 2. Carotid Bifurcation: No significant plaque formation. Maximum Peak Systolic velocity: 27 cm/sec: End-diastolic velocity 7 cm/sec. 3. Internal Carotid Artery: Noncalcific plaque Plaque description: 3.1. Proximal Segment: Peak systolic velocity 52 cm/sec: End-diastolic velocity 15 cm/sec - % stenosis 0-15% 3.2. Middle Segment: Peak systolic velocity 98 cm/sec: End-diastolic velocity 25 cm/sec - % stenosis 0-15% 3.3. Distal Segment: Peak systolic velocity 100 cm/sec: End-diastolic velocity 22 cm/sec - % stenosis 0-15% 4. External Carotid Artery: No significant focal plaque formation. Peak systolic velocity 78 cm/sec 5. ICA/CCA Ratio: 1.6 LEFT CAROTID ARTERIES: 1. Common Carotid Artery: No significant focal plaque formation of the left common carotid artery. Maximum Peak Systolic velocity: 57 cm/sec: End-diastolic velocity 0 cm/sec. 2. Carotid Bifurcation: No significant plaque formation. Maximum Peak Systolic velocity: 46 cm/sec: End-diastolic velocity 8 cm/sec. 3. Internal Carotid Artery: Calcific plaque Plaque description: 3.1. Proximal Segment: Peak systolic velocity 63 cm/sec: End-diastolic velocity 15 cm/sec - % stenosis 0-15% 3.2. Middle Segment: Peak systolic velocity 44 cm/sec: End-diastolic velocity 15 cm/sec - % stenosis 0-15% 3.3. Distal Segment: Peak systolic velocity 76 cm/sec: End-diastolic velocity 17 cm/sec - % stenosis 0-15% 4. External Carotid Artery: No significant focal plaque formation. Peak systolic velocity 71 cm/sec 5. ICA/CCA Ratio: 1.3 VERTEBRAL ARTERIES: 1. Right Vertebral Artery: The right vertebral artery flow direction is antegrade. 2. Left Vertebral Artery: The left vertebral artery flow direction is antegrade. OTHER FINDINGS: 1. Right Brachial Blood pressure: mmHg. 2. Left Brachial Blood pressure: mmHg. IMPRESSION: RIGHT: Duplex scan does not suggest hemodynamically significant stenosis of the right extracranial carotid arteries. LEFT: Duplex scan does not suggest hemodynamically significant stenosis of the left extracranial carotid arteries.
--- NOTE | 2017-11-26 15:40 | CP.PCM.PN ---
<Brenda Merritt - Last Filed: 11/26/17 16:19> Subjective - Date & Time of Evaluation Date of Evaluation: 11/26/17 Time of Evaluation: 09:00 - Subjective Subjective: Medicine Note for Hospitalist Service- Dr. Ramos Patient was seen and examined at bedside. Patient reports he has not been sleeping well the past few nights. Reported slipping off the bed last night, denied head trauma - head CT - no new findings. Denied fever, chills, headache, chest pain, abdominal pain, n/v/d/c, or urinary symptoms. Objective - Vital Signs/Intake and Output Vital Signs (last 24 hours): Temp Pulse Resp BP Pulse Ox 98.0 F 88 20 189/106 H 96 11/26/17 08:21 11/26/17 14:53 11/26/17 14:53 11/26/17 14:53 11/26/17 08:21 Intake and Output: 11/26/17 11/26/17 06:59 18:59 Intake Total 640 Balance 640 - Medications Medications: Current Medications Aspirin (Aspirin Chewable) 81 mg PO DAILY [facility] Last Admin: 11/26/17 10:34 Dose: 81 mg Clopidogrel Bisulfate (Plavix) 75 mg PO DAILY [facility] Last Admin: 11/26/17 10:33 Dose: 75 mg Heparin Sodium (Porcine) (Heparin) 5,000 units SC Q8 [facility] Last Admin: 11/26/17 14:43 Dose: 5,000 units Sodium Chloride (Sodium Chloride 0.9%) 1,000 mls @ 40 mls/hr IV .Q24H [facility] Last Admin: 11/26/17 09:15 Dose: Not Given Rosuvastatin Calcium (Crestor) 40 mg PO HS [facility] Last Admin: 11/25/17 22:12 Dose: 40 mg Zolpidem Tartrate (Ambien) 5 mg PO HS PRN PRN Reason: Insomnia - Labs Labs: 11/26/17 08:43 11/26/17 08:43 PT 11.3 SECONDS (9.7-12.2) 11/24/17 10:32 INR 1.0 11/24/17 10:32 APTT 34 SECONDS (21-34) 11/25/17 08:29 - Constitutional Appears: No Acute Distress - Head Exam Head Exam: NORMAL INSPECTION, NORMOCEPHALIC - Eye Exam Eye Exam: EOMI, Normal appearance, PERRL Pupil Exam: NORMAL ACCOMODATION - ENT Exam ENT Exam: Mucous Membranes Moist - Neck Exam Neck Exam: Normal Inspection - Respiratory Exam Respiratory Exam: Clear to Ausculation Bilateral, NORMAL BREATHING PATTERN - Cardiovascular Exam Cardiovascular Exam: REGULAR RHYTHM Additional comments: left sided contusion noted, under axillary region - GI/Abdominal Exam GI & Abdominal Exam: Soft, Normal Bowel Sounds. absent: Distended, Tenderness - Extremities Exam Extremities Exam: Normal Inspection. absent: Pedal Edema, Tenderness - Neurological Exam Neurological Exam: Alert, Awake, CN II-XII Intact, Oriented x3 Neuro motor strength exam: Left Upper Extremity: 5, Right Upper Extremity: 4, Left Lower Extremity: 5, Right Lower Extremity: 4 - Psychiatric Exam Psychiatric exam: Normal Affect, Normal Mood - Skin Skin Exam: Dry, Intact, Normal Color, Warm Assessment and Plan - Assessment and Plan (Free Text) Plan: Right MCA CVA Neurology consulted - Dr. Mei- jacqueline appreciated Not in window for TPA Permissive Hypertension SBP 180-190s/ 90s Imaging: Head CT: Diffuse atrophy with prominence of the ventricles and sulci noted. No mass effect or edema. Numerous sub cm lacunar infarcts including bilateral basal ganglia and thalami. Scattered periventricular and subcortical white matter hypodensities, which are nonspecific, but often seen with chronic microvascular ischemic disease. Head/Neck CTA: There are partially calcified atherosclerotic plaque changes seen at the distal left common carotid artery/bifurcation extending into the proximal left internal carotid artery resulting in narrowing estimated at approximately 60 %. Carotid Dopplers show no stenosis ECHO pending Patient refuses MRI - will try again Meds: ASA, Plavix, Crestor Left Carotid Stenosis seen on Neck CTA Vascular surgery consult Dr. Rosario, help appreciated Carotid Dopplers studied revealed no stenosis HTN Permissive HTN allowed Will continue to monitor, may start medications S/P Code Star Rib Xray - no fractures noted Tobacco Use Disorder Smoking Cessation Patient refused Nicotine patch Prophylactic Measures GI PPX: Pepcid 20mg PO daily DVT PPX: SCDs, Heparin Q8H [facility] Shaina Gutiérrez DO, PGY-1 <Shalini Ramos - Last Filed: 11/27/17 14:04> Objective - Vital Signs/Intake and Output Vital Signs (last 24 hours): Temp Pulse Resp BP Pulse Ox 98.4 F 76 20 182/87 H 95 11/27/17 07:00 11/27/17 07:55 11/27/17 07:00 11/27/17 12:35 11/27/17 07:00 Intake and Output: 11/27/17 11/27/17 06:59 18:59 Intake Total 320 Balance 320 - Medications Medications: Current Medications Acetaminophen (Tylenol 325mg Tab) 650 mg PO Q6 PRN PRN Reason: Pain, Mild (1-3) Aspirin (Aspirin Chewable) 81 mg PO DAILY [facility] Last Admin: 11/27/17 10:38 Dose: 81 mg Benzocaine/Menthol (Cepacol Sore Throat) 1 tamia MT QID PRN PRN Reason: Sore Throat Clopidogrel Bisulfate (Plavix) 75 mg PO DAILY [facility] Last Admin: 11/27/17 10:27 Dose: 75 mg Famotidine (Pepcid) 20 mg PO DAILY [facility] Last Admin: 11/27/17 10:28 Dose: 20 mg Heparin Sodium (Porcine) (Heparin) 5,000 units SC Q8 [facility] Last Admin: 11/27/17 13:19 Dose: 5,000 units Hydrochlorothiazide (Hydrodiuril) 25 mg PO DAILY [facility] Ketorolac Tromethamine (Toradol) 30 mg IVP Q6 PRN PRN Reason: Pain, moderate (4-7) Losartan Potassium (Cozaar) 25 mg PO DAILY [facility] Rosuvastatin Calcium (Crestor) 40 mg PO HS [facility] Last Admin: 11/26/17 21:37 Dose: 40 mg Temazepam (Restoril) 15 mg PO HS PRN PRN Reason: Insomnia Last Admin: 11/26/17 22:11 Dose: 15 mg - Labs Labs: 11/27/17 06:23 11/27/17 06:24 PT 11.3 SECONDS (9.7-12.2) 11/24/17 10:32 INR 1.0 11/24/17 10:32 APTT 34 SECONDS (21-34) 11/25/17 08:29 Attending/Attestation - Attestation I have personally seen and examined this patient.: Yes I have fully participated in the care of the patient.: Yes I have reviewed all pertinent clinical information, including history, physical exam and plan: Yes Notes (Text): Seen and examined.Discussed with the resident Patient is alert and oriented x3,clear speech,feels tired and complaining of not able to sleep two days.Patient's left weakness improving. Able lfit his left arm and leg without drift. has good poer.Left side extremities are slightly weaker than right His blood pressure is high /we will allow permissive hypertension. we will monitor BP .
--- NOTE | 2017-11-26 20:42 | CARD ---
APPROVED REPORT EXAM: Two-dimensional and M-mode echocardiogram with Doppler and color Doppler. Other Information Quality : GoodRhythm : INDICATION STROKE 2D DIMENSIONS IVSd1.9 (0.7-1.1cm)LVDd4.4 (3.9-5.9cm) PWd1.4 (0.7-1.1cm)LVDs3.5 (2.5-4.0cm) FS (%) 20.2 %LVEF (%)41.6 (>50%) M-Mode DIMENSIONS Left Atrium (MM)4.17 (2.5-4.0cm)IVSd1.59 (0.7-1.1cm) Aortic Root3.69 (2.2-3.7cm)LVDd6.20 (4.0-5.6cm) Aortic Cusp Exc.1.92 (1.5-2.0cm)PWd1.51 (0.7-1.1cm) FS (%) 22 %LVDs4.83 (2.0-3.8cm) LVEF (%)44 (>50%) Aortic Valve AI P 1/2 [id number] Mitral Valve MV E Wusbpvbr62.6cm/sMV A Cokmpoqp72.0cm/sE/A ratio0.4 TDI E/Lateral E'0.0E/Medial E'0.0 LEFT VENTRICLE The left ventricle is normal size. There is normal left ventricular wall thickness. The left ventricular function is normal. The left ventricular ejection fraction is within the normal range. 65% No regional wall motion abnormalities noted. Transmitral Doppler flow pattern is Grade I-abnormal relaxation pattern. No left ventricle thrombus noted on this study. There is no ventricular septal defect visualized. There is no left ventricular aneurysm. There is no mass noted in the left ventricle. RIGHT VENTRICLE The right ventricle is normal size. There is normal right ventricular wall thickness. The right ventricular systolic function is normal. ATRIA The left atrium size is normal. The right atrium size is normal. The interatrial septum is intact with no evidence for an atrial septal defect. AORTIC VALVE The aortic valve is normal in structure and function. Mild aortic regurgitation is present. There is no aortic valvular stenosis. There is no aortic valvular vegetation. MITRAL VALVE The mitral valve is normal in structure and function. There is no evidence of mitral valve prolapse. There is no mitral valve stenosis. There is no mitral valve regurgitation noted. TRICUSPID VALVE The tricuspid valve is normal in structure and function. There is no tricuspid valve regurgitation noted. There is no tricuspid valve prolapse or vegetation. There is no tricuspid valve stenosis. PULMONIC VALVE The pulmonary valve is normal in structure and function. There is no pulmonic valvular regurgitation. There is no pulmonic valvular stenosis. GREAT VESSELS The aortic root is normal in size. The ascending aorta is normal in size. The pulmonary artery is normal. The IVC is normal in size and collapses >50% with inspiration. PERICARDIAL EFFUSION The pericardium appears normal. There is no pleural effusion. <Conclusion> Normal LV systolic function. Mild aortic regurgitation. Type I diastolic dysfunction.
--- NOTE | 2017-11-26 21:03 | CARD ---
APPROVED REPORT EKG Measurement Heart [id number] <Conclusion> Sinus rhythm with premature atrial complexes Left anterior fascicular block Inferior infarct, age undetermined Abnormal ECG
[2017-11-27] MEDS: Sodium Chloride 0.9% 1,000 ML IV SCH (06:24)
[2017-11-27 06:38] LABS: BASO # 0.1 K/uL (0.0-0.2); MONO # 0.8 K/uL (0.0-0.8); NEUT # 4.7 K/uL (1.8-7.0)
[2017-11-27 07:00] LABS: ALB/GLOB RATIO 1.1 (1.0-2.1); ALBUMIN 3.6 g/dL (3.5-5.0); ALT/SGPT 33 U/L (21-72); AST/SGOT 35 U/L (17-59); BLOOD UREA NITROGEN 13 mg/dL (9-20); CALCIUM 7.8 mg/dl (8.6-10.4); GFR AFRICAN-AMERICAN > 60; GFR NON-AFRICAN AMERICAN > 60
[2017-11-27 07:52] LABS: BASO % 1.2 % (0.0-2.0); EOS # 0.2 K/uL (0.0-0.7); EOS % 2.1 % (0.0-4.0); LYMPH # 1.7 K/uL (1.0-4.3); LYMPH % 23.1 % (20.0-40.0); MEAN CELL VOLUME 94.3 fL (80.0-94.0); MEAN CORPUSCULAR HEMOGLOBIN 33.9 pg (27.0-31.0); MEAN CORPUSCULAR HGB CONC 35.9 g/dL (33.0-37.0); MEAN PLATELET VOLUME 7.5 fL (7.2-11.7); MONO % 10.5 % (0.0-10.0); NEUT % 63.1 % (50.0-75.0); RBC 4.44 Mil/uL (4.40-5.90); RED CELL DISTRIBUTION WIDTH 13.5 % (11.5-14.5); WHITE BLOOD COUNT 7.5 K/uL (4.8-10.8)
[2017-11-27] MEDS ORDERED: Potassium Chloride 20 mEq ER Tab PO ONE (10:00)
[2017-11-27] MEDS ORDERED: Benzocaine/Menthol (Cepacol) Lozenge MT PRN (10:27)
--- NOTE | 2017-11-27 14:39 | RAD ---
HISTORY: rales on exam COMPARISON: 11/25/2017. FINDINGS: LUNGS: No active pulmonary disease. PLEURA: No significant pleural effusion identified, no pneumothorax apparent. CARDIOVASCULAR: No radiographic findings to suggest acute or significant cardiovascular disease. OSSEOUS STRUCTURES: No significant abnormalities. VISUALIZED UPPER ABDOMEN: Normal. OTHER FINDINGS: None. IMPRESSION: No active disease. No significant interval change compared to the prior examination(s).
--- NOTE | 2017-11-27 18:38 | CP.PCM.PN ---
Subjective - Date & Time of Evaluation Date of Evaluation: 11/27/17 Time of Evaluation: 11:00 - Subjective Subjective: No complain,feels better,slept last night No weakness Lives alone. His brother and his brothers children are close by to help him Doesn't have a primary care physician.not seen by a physician for a long time Understood that his BP is high and need antihypertensives Objective - Vital Signs/Intake and Output Vital Signs (last 24 hours): Temp Pulse Resp BP Pulse Ox 98.3 F 78 20 180/95 H 97 11/27/17 15:27 11/27/17 16:15 11/27/17 15:27 11/27/17 15:27 11/27/17 15:27 Intake and Output: 11/27/17 11/27/17 06:59 18:59 Intake Total 320 Balance 320 - Medications Medications: Current Medications Acetaminophen (Tylenol 325mg Tab) 650 mg PO Q6 PRN PRN Reason: Pain, Mild (1-3) Aspirin (Aspirin Chewable) 81 mg PO DAILY [facility] Last Admin: 11/27/17 10:38 Dose: 81 mg Benzocaine/Menthol (Cepacol Sore Throat) 1 tamia MT QID PRN PRN Reason: Sore Throat Clopidogrel Bisulfate (Plavix) 75 mg PO DAILY [facility] Last Admin: 11/27/17 10:27 Dose: 75 mg Famotidine (Pepcid) 20 mg PO DAILY [facility] Last Admin: 11/27/17 10:28 Dose: 20 mg Heparin Sodium (Porcine) (Heparin) 5,000 units SC Q8 [facility] Last Admin: 11/27/17 13:19 Dose: 5,000 units Hydrochlorothiazide (Hydrodiuril) 25 mg PO DAILY [facility] Ketorolac Tromethamine (Toradol) 30 mg IVP Q6 PRN PRN Reason: Pain, moderate (4-7) Losartan Potassium (Cozaar) 25 mg PO DAILY [facility] Rosuvastatin Calcium (Crestor) 40 mg PO HS [facility] Last Admin: 11/26/17 21:37 Dose: 40 mg Temazepam (Restoril) 15 mg PO HS PRN PRN Reason: Insomnia Last Admin: 11/26/17 22:11 Dose: 15 mg - Labs Labs: 11/27/17 06:23 11/27/17 06:24 PT 11.3 SECONDS (9.7-12.2) 11/24/17 10:32 INR 1.0 11/24/17 10:32 APTT 34 SECONDS (21-34) 11/25/17 08:29 - Constitutional Appears: Non-toxic, Toxic - Head Exam Head Exam: NORMAL INSPECTION - Eye Exam Eye Exam: Normal appearance - ENT Exam ENT Exam: Mucous Membranes Moist - Neck Exam Neck Exam: Normal Inspection - Respiratory Exam Respiratory Exam: Clear to Ausculation Bilateral, NORMAL BREATHING PATTERN - Cardiovascular Exam Cardiovascular Exam: REGULAR RHYTHM - GI/Abdominal Exam GI & Abdominal Exam: Soft, Normal Bowel Sounds - Exam External exam: NORMAL EXTERNAL EXAM - Extremities Exam Extremities Exam: Full ROM - Back Exam Back Exam: NORMAL INSPECTION - Neurological Exam Neurological Exam: Awake, Oriented x3 Neuro motor strength exam: Left Upper Extremity: 5, Right Upper Extremity: 5, Left Lower Extremity: 5, Right Lower Extremity: 5 - Psychiatric Exam Psychiatric exam: Normal Affect, Normal Mood - Skin Skin Exam: Dry, Normal Color Assessment and Plan - Assessment and Plan (Free Text) Plan: 1. Right MCA CVA Neurology consulted - Dr. Mei- jacqueline appreciated Not in window for TPA Permissive Hypertension SBP 180-190s/ 90s Imaging: Head CT: Diffuse atrophy with prominence of the ventricles and sulci noted. No mass effect or edema. Numerous sub cm lacunar infarcts including bilateral basal ganglia and thalami. Scattered periventricular and subcortical white matter hypodensities, which are nonspecific, but often seen with chronic microvascular ischemic disease. Head/Neck CTA: There are partially calcified atherosclerotic plaque changes seen at the distal left common carotid artery/bifurcation extending into the proximal left internal carotid artery resulting in narrowing estimated at approximately 60 %. Carotid Dopplers show no stenosis ECHO pending Patient refuses MRI - Meds: ASA, Plavix, Crestor PT pending-follow PT evaluation 2. Left Carotid Stenosis seen on Neck CTA Vascular surgery consult Dr. Rosario, help appreciated Carotid Dopplers studied revealed no stenosis 3. HTN Permissive HTN allowed . His BP is high today We will start on HCTZ and ACEI while he is in the hospital.monitor closely discuss about follow up and make appointment at the clinic possible discharge tomorrow 4 S/P Code Star Rib Xray - no fractures noted 5. Tobacco Use Disorder Smoking Cessation Patient refused Nicotine patch 6 Prophylactic Measures GI PPX: Pepcid 20mg PO daily DVT PPX: SCDs, Heparin Q8H
[2017-11-28 07:50] LABS: ALB/GLOB RATIO 1.1 (1.0-2.1); ALBUMIN 3.8 g/dL (3.5-5.0); ALT/SGPT 35 U/L (21-72); AST/SGOT 58 U/L (17-59); BLOOD UREA NITROGEN 12 mg/dL (9-20); CALCIUM 8.7 mg/dl (8.6-10.4); GFR AFRICAN-AMERICAN > 60; GFR NON-AFRICAN AMERICAN > 60; MAGNESIUM 2.1 mg/dL (1.6-2.3)
--- NOTE | 2017-11-28 08:00 | CP.PCM.PN ---
Subjective - Date & Time of Evaluation Date of Evaluation: 11/28/17 Time of Evaluation: 08:00 - Subjective Subjective: Mr. Ryder was seen and examined at the bedside. He is alert, oriented with mild dysarythia. He denies any headache, blurred vision, dizziness, nausea, or vomiting. He further claims of his speech is almost 90 % improved from baseline. He is able to follow simple commands. He remains with mild left side facial droop with left arm drift improving including the strength. He had an episode of elevated blood pressure yesterday. medication was given and repeat CT scan of the head was done which showed no acute intracranial abnormality. The patient still refused MRI. Objective - Vital Signs/Intake and Output Vital Signs (last 24 hours): Temp Pulse Resp BP Pulse Ox 97.7 F 76 20 174/92 H 95 11/28/17 04:34 11/28/17 04:34 11/28/17 04:34 11/28/17 05:00 11/28/17 04:34 Intake and Output: 11/28/17 11/28/17 06:59 18:59 Intake Total 10 Output Total 400 Balance -390 - Medications Medications: Current Medications Acetaminophen (Tylenol 325mg Tab) 650 mg PO Q6 PRN PRN Reason: Pain, Mild (1-3) Aspirin (Aspirin Chewable) 81 mg PO DAILY [facility] Last Admin: 11/27/17 10:38 Dose: 81 mg Benzocaine/Menthol (Cepacol Sore Throat) 1 tamia MT QID PRN PRN Reason: Sore Throat Clopidogrel Bisulfate (Plavix) 75 mg PO DAILY [facility] Last Admin: 11/27/17 10:27 Dose: 75 mg Famotidine (Pepcid) 20 mg PO DAILY [facility] Last Admin: 11/27/17 10:28 Dose: 20 mg Heparin Sodium (Porcine) (Heparin) 5,000 units SC Q8 [facility] Last Admin: 11/28/17 05:56 Dose: 5,000 units Hydrochlorothiazide (Hydrodiuril) 25 mg PO DAILY [facility] Ketorolac Tromethamine (Toradol) 30 mg IVP Q6 PRN PRN Reason: Pain, moderate (4-7) Losartan Potassium (Cozaar) 25 mg PO DAILY [facility] Rosuvastatin Calcium (Crestor) 40 mg PO HS [facility] Last Admin: 11/27/17 21:29 Dose: 40 mg Temazepam (Restoril) 15 mg PO HS PRN PRN Reason: Insomnia Last Admin: 11/27/17 21:58 Dose: 15 mg - Labs Labs: 11/27/17 06:23 11/28/17 07:01 PT 11.3 SECONDS (9.7-12.2) 11/24/17 10:32 INR 1.0 11/24/17 10:32 APTT 34 SECONDS (21-34) 11/25/17 08:29 - Constitutional Appears: No Acute Distress - Head Exam Head Exam: NORMAL INSPECTION - Neurological Exam Neurological Exam: Alert, Awake, Oriented x3 Neuro motor strength exam: Left Upper Extremity: 4, Right Upper Extremity: 5, Left Lower Extremity: 4, Right Lower Extremity: 5 Additional comments: Neurological unchanged from previous examination. Assessment and Plan (1) Ischemic stroke Assessment & Plan: Case discussed with Dr. Cleaning, continue all current medical, physical, occupational, and speech therapies. Recommend blood pressure control and an acute rehab for discharge planning. Status: Acute
[2017-11-28 08:06] LABS: BASO # 0.1 K/uL (0.0-0.2); BASO % 0.9 % (0.0-2.0); EOS # 0.2 K/uL (0.0-0.7); EOS % 2.6 % (0.0-4.0); LYMPH # 1.8 K/uL (1.0-4.3); LYMPH % 28.6 % (20.0-40.0); MEAN CELL VOLUME 93.9 fL (80.0-94.0); MEAN CORPUSCULAR HEMOGLOBIN 34.2 pg (27.0-31.0); MEAN CORPUSCULAR HGB CONC 36.4 g/dL (33.0-37.0); MEAN PLATELET VOLUME 7.6 fL (7.2-11.7); MONO # 0.8 K/uL (0.0-0.8); NEUT # 3.6 K/uL (1.8-7.0); NEUT % 55.9 % (50.0-75.0); NRBC % 0.1 % (0.0-2.0); RBC 4.54 Mil/uL (4.40-5.90); RED CELL DISTRIBUTION WIDTH 13.6 % (11.5-14.5); WHITE BLOOD COUNT 6.5 K/uL (4.8-10.8)
[2017-11-28 08:09] LABS: HEMOGLOBIN 15.5 g/dL (12.0-18.0)
--- NOTE | 2017-11-28 12:35 | CP.PCM.PN ---
<Brenda Merritt - Last Filed: 11/28/17 12:31> Subjective - Date & Time of Evaluation Date of Evaluation: 11/28/17 Time of Evaluation: 09:00 - Subjective Subjective: Medicine Note for Hospitalist Service- Dr. Ramos Patient was seen and examined at bedside. Patient reports he slept well. No acute complaints. Denied fever, chills, headache, chest pain, abdominal pain, n/ v/d/c, or urinary symptoms. Objective - Vital Signs/Intake and Output Vital Signs (last 24 hours): Temp Pulse Resp BP Pulse Ox 97.3 F L 75 20 172/95 H 95 11/28/17 08:00 11/28/17 08:00 11/28/17 08:00 11/28/17 08:00 11/28/17 08:00 Intake and Output: 11/28/17 11/28/17 06:59 18:59 Intake Total 10 Output Total 400 Balance -390 - Medications Medications: Current Medications Acetaminophen (Tylenol 325mg Tab) 650 mg PO Q6 PRN PRN Reason: Pain, Mild (1-3) Amlodipine Besylate (Norvasc) 10 mg PO DAILY [facility] Last Admin: 11/28/17 10:02 Dose: 10 mg Aspirin (Aspirin Chewable) 81 mg PO DAILY [facility] Last Admin: 11/28/17 10:02 Dose: 81 mg Benzocaine/Menthol (Cepacol Sore Throat) 1 tamia MT QID PRN PRN Reason: Sore Throat Last Admin: 11/28/17 10:52 Dose: 1 tamia Clopidogrel Bisulfate (Plavix) 75 mg PO DAILY [facility] Last Admin: 11/28/17 10:02 Dose: 75 mg Famotidine (Pepcid) 20 mg PO DAILY [facility] Last Admin: 11/28/17 10:02 Dose: 20 mg Heparin Sodium (Porcine) (Heparin) 5,000 units SC Q8 [facility] Last Admin: 11/28/17 05:56 Dose: 5,000 units Losartan Potassium (Cozaar) 50 mg PO DAILY [facility] Last Admin: 11/28/17 10:02 Dose: 50 mg Rosuvastatin Calcium (Crestor) 20 mg PO HS [facility] Temazepam (Restoril) 15 mg PO HS PRN PRN Reason: Insomnia Last Admin: 11/27/17 21:58 Dose: 15 mg - Labs Labs: 11/28/17 07:01 11/28/17 07:01 PT 11.3 SECONDS (9.7-12.2) 11/24/17 10:32 INR 1.0 11/24/17 10:32 APTT 34 SECONDS (21-34) 11/25/17 08:29 - Additional Findings Additional findings: - Constitutional Appears: No Acute Distress - Head Exam Head Exam: NORMAL INSPECTION, NORMOCEPHALIC - Eye Exam Eye Exam: EOMI, Normal appearance, PERRL Pupil Exam: NORMAL ACCOMODATION - ENT Exam ENT Exam: Mucous Membranes Moist - Neck Exam Neck Exam: Normal Inspection - Respiratory Exam Respiratory Exam: Clear to Ausculation Bilateral, NORMAL BREATHING PATTERN - Cardiovascular Exam Cardiovascular Exam: REGULAR RHYTHM Additional comments: left sided contusion noted, under axillary region - GI/Abdominal Exam GI & Abdominal Exam: Soft, Normal Bowel Sounds. absent: Distended, Tenderness - Extremities Exam Extremities Exam: Normal Inspection. absent: Pedal Edema, Tenderness - Neurological Exam Neurological Exam: Alert, Awake, CN II-XII Intact, Oriented x3 Neuro motor strength exam: Left Upper Extremity: 5, Right Upper Extremity: 4, Left Lower Extremity: 5, Right Lower Extremity: 4 - Psychiatric Exam Psychiatric exam: Normal Affect, Normal Mood - Skin Skin Exam: Dry, Intact, Normal Color, Warm Assessment and Plan - Assessment and Plan (Free Text) Plan: Right MCA CVA Neurology consulted - Dr. Mei- help appreciated Not in window for TPA Permissive Hypertension SBP 180-190s/ 90s Imaging: Head CT: Diffuse atrophy with prominence of the ventricles and sulci noted. No mass effect or edema. Numerous sub cm lacunar infarcts including bilateral basal ganglia and thalami. Scattered periventricular and subcortical white matter hypodensities, which are nonspecific, but often seen with chronic microvascular ischemic disease. Head/Neck CTA: There are partially calcified atherosclerotic plaque changes seen at the distal left common carotid artery/bifurcation extending into the proximal left internal carotid artery resulting in narrowing estimated at approximately 60 %. Carotid Dopplers show no stenosis ECHO pending Patient refuses MRI - will try again Meds: ASA, Plavix, Crestor Left Carotid Stenosis seen on Neck CTA Vascular surgery consult Dr. Rosario, help appreciated Carotid Dopplers studied revealed no stenosis No surgical intervention at this time HTN Started on Norvasc 10mg PO daily, Cozaar 50mg PO daily S/P Code Star Rib Xray - no fractures noted Tobacco Use Disorder Smoking Cessation Patient refused Nicotine patch Prophylactic Measures GI PPX: Pepcid 20mg PO daily DVT PPX: SCDs, Heparin Q8H PT/OT: recommends Acute Rehab Disposition: Pending placement for [facility] - pending case management to speak to family for support to fund rehab. Shaina Maher Dr., DO, PGY-1 <Shalini Ramos - Last Filed: 11/28/17 14:06> Objective - Vital Signs/Intake and Output Vital Signs (last 24 hours): Temp Pulse Resp BP Pulse Ox 97.3 F L 80 20 173/110 H 95 11/28/17 08:00 11/28/17 13:01 11/28/17 08:00 11/28/17 13:01 11/28/17 08:00 Intake and Output: 11/28/17 11/28/17 06:59 18:59 Intake Total 10 Output Total 400 Balance -390 - Medications Medications: Current Medications Acetaminophen (Tylenol 325mg Tab) 650 mg PO Q6 PRN PRN Reason: Pain, Mild (1-3) Amlodipine Besylate (Norvasc) 10 mg PO DAILY [facility] Last Admin: 11/28/17 10:02 Dose: 10 mg Aspirin (Aspirin Chewable) 81 mg PO DAILY [facility] Last Admin: 11/28/17 10:02 Dose: 81 mg Benzocaine/Menthol (Cepacol Sore Throat) 1 tamia MT QID PRN PRN Reason: Sore Throat Last Admin: 11/28/17 10:52 Dose: 1 tamia Clopidogrel Bisulfate (Plavix) 75 mg PO DAILY [facility] Last Admin: 11/28/17 10:02 Dose: 75 mg Famotidine (Pepcid) 20 mg PO DAILY [facility] Last Admin: 11/28/17 10:02 Dose: 20 mg Heparin Sodium (Porcine) (Heparin) 5,000 units SC Q8 [facility] Last Admin: 11/28/17 05:56 Dose: 5,000 units Losartan Potassium (Cozaar) 50 mg PO DAILY [facility] Last Admin: 11/28/17 10:02 Dose: 50 mg Rosuvastatin Calcium (Crestor) 20 mg PO HS [facility] Temazepam (Restoril) 15 mg PO HS PRN PRN Reason: Insomnia Last Admin: 11/27/17 21:58 Dose: 15 mg - Labs Labs: 11/28/17 07:01 11/28/17 07:01 PT 11.3 SECONDS (9.7-12.2) 11/24/17 10:32 INR 1.0 11/24/17 10:32 APTT 34 SECONDS (21-34) 11/25/17 08:29 Attending/Attestation - Attestation I have personally seen and examined this patient.: Yes I have fully participated in the care of the patient.: Yes I have reviewed all pertinent clinical information, including history, physical exam and plan: Yes Notes (Text): Patient was seen and examined No complain d/w resident Pending placement I agree with the documentation of the resident's assessment and the plan 11/28/17 14:05
--- NOTE | 2017-11-28 16:49 | CARD ---
APPROVED REPORT EKG Measurement Heart [id number] QT0T0 QTc0 <Conclusion> No QRS complexes found, no ECG analysis possible
[2017-11-28 22:22] LABS: INR 1.1; PROTHROMBIN TIME 12.4 SECONDS (9.7-12.2)
--- NOTE | 2017-11-29 06:45 | CP.PCM.PN ---
<RománmariselaBrenda - Last Filed: 11/29/17 11:01> Subjective - Date & Time of Evaluation Date of Evaluation: 11/29/17 Time of Evaluation: 07:00 - Subjective Subjective: Medicine Note for Hospitalist Service- Dr. Ramos Patient was seen and examined at bedside. Patient reports had a nose bleed last night, that last 2-3 minutes stopped with pressure applied to the nose. Denied fever, chills, headache, chest pain, abdominal pain, n/v/d/c, or urinary symptoms. Objective - Vital Signs/Intake and Output Vital Signs (last 24 hours): Temp Pulse Resp BP Pulse Ox 98.1 F 84 20 158/86 H 95 11/28/17 23:10 11/29/17 00:00 11/28/17 23:10 11/28/17 23:10 11/28/17 23:10 Intake and Output: 11/28/17 11/29/17 18:59 06:59 Intake Total 100 Output Total 1400 Balance -1300 - Medications Medications: Current Medications Acetaminophen (Tylenol 325mg Tab) 650 mg PO Q6 PRN PRN Reason: Pain, Mild (1-3) Amlodipine Besylate (Norvasc) 10 mg PO DAILY [facility] Last Admin: 11/28/17 10:02 Dose: 10 mg Aspirin (Aspirin Chewable) 81 mg PO DAILY [facility] Last Admin: 11/28/17 10:02 Dose: 81 mg Benzocaine/Menthol (Cepacol Sore Throat) 1 tamia MT QID PRN PRN Reason: Sore Throat Last Admin: 11/28/17 10:52 Dose: 1 tamia Clopidogrel Bisulfate (Plavix) 75 mg PO DAILY [facility] Last Admin: 11/28/17 10:02 Dose: 75 mg Famotidine (Pepcid) 20 mg PO DAILY [facility] Last Admin: 11/28/17 10:02 Dose: 20 mg Heparin Sodium (Porcine) (Heparin) 5,000 units SC Q8 [facility] Last Admin: 11/29/17 05:02 Dose: 5,000 units Losartan Potassium (Cozaar) 50 mg PO DAILY [facility] Last Admin: 11/28/17 10:02 Dose: 50 mg Rosuvastatin Calcium (Crestor) 20 mg PO HS [facility] Last Admin: 11/28/17 21:19 Dose: 20 mg Temazepam (Restoril) 15 mg PO HS PRN PRN Reason: Insomnia Last Admin: 11/28/17 21:19 Dose: 15 mg - Labs Labs: 11/28/17 07:01 11/28/17 07:01 PT 12.4 SECONDS (9.7-12.2) H 11/28/17 22:10 INR 1.1 11/28/17 22:10 APTT 34 SECONDS (21-34) 11/28/17 22:10 - Additional Findings Additional findings: - Constitutional Appears: No Acute Distress - Head Exam Head Exam: NORMAL INSPECTION, NORMOCEPHALIC - Eye Exam Eye Exam: EOMI, Normal appearance, PERRL Pupil Exam: NORMAL ACCOMODATION - ENT Exam ENT Exam: Mucous Membranes Moist - Neck Exam Neck Exam: Normal Inspection - Respiratory Exam Respiratory Exam: Clear to Ausculation Bilateral, NORMAL BREATHING PATTERN - Cardiovascular Exam Cardiovascular Exam: REGULAR RHYTHM Additional comments: left sided contusion noted, under axillary region - GI/Abdominal Exam GI & Abdominal Exam: Soft, Normal Bowel Sounds. absent: Distended, Tenderness - Extremities Exam Extremities Exam: Normal Inspection. absent: Pedal Edema, Tenderness - Neurological Exam Neurological Exam: Alert, Awake, CN II-XII Intact, Oriented x3 Neuro motor strength exam: Left Upper Extremity: 5, Right Upper Extremity: 4, Left Lower Extremity: 5, Right Lower Extremity: 4 - Psychiatric Exam Psychiatric exam: Normal Affect, Normal Mood - Skin Skin Exam: Dry, Intact, Normal Color, Warm Assessment and Plan - Assessment and Plan (Free Text) Plan: Right MCA CVA Neurology consulted - Dr. Mei- jacqueline appreciated Not in window for TPA Permissive Hypertension SBP 180-190s/ 90s on admission Imaging: Head CT: Diffuse atrophy with prominence of the ventricles and sulci noted. No mass effect or edema. Numerous sub cm lacunar infarcts including bilateral basal ganglia and thalami. Scattered periventricular and subcortical white matter hypodensities, which are nonspecific, but often seen with chronic microvascular ischemic disease. Head/Neck CTA: There are partially calcified atherosclerotic plaque changes seen at the distal left common carotid artery/bifurcation extending into the proximal left internal carotid artery resulting in narrowing estimated at approximately 60 %. Carotid Dopplers show no stenosis ECHO: LVEF 44%, Type I diastolic Dysfunction Patient refuses MRI Meds: ASA, Plavix, Crestor Left Carotid Stenosis seen on Neck CTA Vascular surgery consult Dr. Rosario, help appreciated Carotid Dopplers studied revealed no stenosis No surgical intervention at this time HTN Started on Norvasc 10mg PO daily, Cozaar 50mg PO daily S/P Code Star Rib Xray - no fractures noted Tobacco Use Disorder Smoking Cessation Patient refused Nicotine patch Prophylactic Measures GI PPX: Pepcid 20mg PO daily DVT PPX: SCDs, Heparin Q8H PT/OT: recommends Acute Rehab Disposition: [facility] [facility] [place] - pending case management to speak to family for support to fund rehab. DW Shaina Gutiérrez DO, PGY-1 <Shalini Ramos - Last Filed: 11/29/17 13:21> Objective - Vital Signs/Intake and Output Vital Signs (last 24 hours): Temp Pulse Resp BP Pulse Ox 97.5 F L 74 20 171/87 H 97 11/29/17 07:45 11/29/17 07:45 11/29/17 07:45 11/29/17 07:45 11/29/17 07:45 Intake and Output: 11/29/17 11/29/17 06:59 18:59 Intake Total 100 Output Total 1400 Balance -1300 - Medications Medications: Current Medications Acetaminophen (Tylenol 325mg Tab) 650 mg PO Q6 PRN PRN Reason: Pain, Mild (1-3) Amlodipine Besylate (Norvasc) 10 mg PO DAILY [facility] Last Admin: 11/29/17 09:37 Dose: 10 mg Aspirin (Aspirin Chewable) 81 mg PO DAILY [facility] Last Admin: 11/29/17 09:37 Dose: 81 mg Benzocaine/Menthol (Cepacol Sore Throat) 1 tamia MT QID PRN PRN Reason: Sore Throat Last Admin: 11/28/17 10:52 Dose: 1 tamia Clopidogrel Bisulfate (Plavix) 75 mg PO DAILY [facility] Last Admin: 11/29/17 09:37 Dose: 75 mg Famotidine (Pepcid) 20 mg PO DAILY [facility] Last Admin: 11/29/17 09:37 Dose: 20 mg Heparin Sodium (Porcine) (Heparin) 5,000 units SC Q8 [facility] Last Admin: 11/29/17 05:02 Dose: 5,000 units Losartan Potassium (Cozaar) 50 mg PO DAILY [facility] Last Admin: 11/29/17 09:37 Dose: 50 mg Rosuvastatin Calcium (Crestor) 20 mg PO HS [facility] Last Admin: 11/28/17 21:19 Dose: 20 mg Temazepam (Restoril) 15 mg PO HS PRN PRN Reason: Insomnia Last Admin: 11/28/17 21:19 Dose: 15 mg - Labs Labs: 11/29/17 06:32 11/29/17 06:32 PT 12.4 SECONDS (9.7-12.2) H 11/28/17 22:10 INR 1.1 11/28/17 22:10 APTT 34 SECONDS (21-34) 11/28/17 22:10 Attending/Attestation - Attestation I have personally seen and examined this patient.: Yes I have fully participated in the care of the patient.: Yes I have reviewed all pertinent clinical information, including history, physical exam and plan: Yes Notes (Text): Patient was seen and examined Has no complain. Appreciate the care. Denies headache,refuses MRI,Claims that his speech is normal. His family/brother visited him last night Patient understand he needs medication to control his blood pressure d/w The resident. I agree with the documentation of the resident's assessment and the plan
--- NOTE | 2017-11-29 07:04 | CP.PCM.PN ---
Subjective - Date & Time of Evaluation Date of Evaluation: 11/29/17 Time of Evaluation: 07:02 - Subjective Subjective: Mr. Ryder was seen and examined at the bedside. He is alert, oriented, claims of feeling very sleepy this morning. He denies any headache, blurred vision, lightheadedness, or blurred vision. He further claims of his speech is improving each day.He is able to follow simple commands with left arm drift improving from previous examination. He remains on telesitter for patient safety. He had an episode of epitaxis last night which was resolved. Objective - Vital Signs/Intake and Output Vital Signs (last 24 hours): Temp Pulse Resp BP Pulse Ox 98.1 F 84 20 158/86 H 95 11/28/17 23:10 11/29/17 00:00 11/28/17 23:10 11/28/17 23:10 11/28/17 23:10 Intake and Output: 11/29/17 11/29/17 06:59 18:59 Intake Total 100 Output Total 1400 Balance -1300 - Medications Medications: Current Medications Acetaminophen (Tylenol 325mg Tab) 650 mg PO Q6 PRN PRN Reason: Pain, Mild (1-3) Amlodipine Besylate (Norvasc) 10 mg PO DAILY [facility] Last Admin: 11/28/17 10:02 Dose: 10 mg Aspirin (Aspirin Chewable) 81 mg PO DAILY [facility] Last Admin: 11/28/17 10:02 Dose: 81 mg Benzocaine/Menthol (Cepacol Sore Throat) 1 tamia MT QID PRN PRN Reason: Sore Throat Last Admin: 11/28/17 10:52 Dose: 1 tamia Clopidogrel Bisulfate (Plavix) 75 mg PO DAILY [facility] Last Admin: 11/28/17 10:02 Dose: 75 mg Famotidine (Pepcid) 20 mg PO DAILY [facility] Last Admin: 11/28/17 10:02 Dose: 20 mg Heparin Sodium (Porcine) (Heparin) 5,000 units SC Q8 [facility] Last Admin: 11/29/17 05:02 Dose: 5,000 units Losartan Potassium (Cozaar) 50 mg PO DAILY [facility] Last Admin: 11/28/17 10:02 Dose: 50 mg Rosuvastatin Calcium (Crestor) 20 mg PO HS [facility] Last Admin: 11/28/17 21:19 Dose: 20 mg Temazepam (Restoril) 15 mg PO HS PRN PRN Reason: Insomnia Last Admin: 11/28/17 21:19 Dose: 15 mg - Labs Labs: 11/28/17 07:01 11/28/17 07:01 PT 12.4 SECONDS (9.7-12.2) H 11/28/17 22:10 INR 1.1 11/28/17 22:10 APTT 34 SECONDS (21-34) 11/28/17 22:10 - Constitutional Appears: No Acute Distress - Head Exam Head Exam: NORMAL INSPECTION - Neurological Exam Neurological Exam: Alert, Awake, Oriented x3 Neuro motor strength exam: Left Upper Extremity: 4, Right Upper Extremity: 5, Left Lower Extremity: 4, Right Lower Extremity: 5 Additional comments: Neurological improved from previous examination. His left arm drift is improving. Assessment and Plan (1) Ischemic stroke Assessment & Plan: Case discussed with Dr. Cleaning, continue all current medical, physical, and occupational therapies. Recommend blood pressure control and acute rehab for discharge planning. Status: Acute
[2017-11-29 07:06] LABS: ALBUMIN 3.7 g/dL (3.5-5.0); ALT/SGPT 37 U/L (21-72); AST/SGOT 52 U/L (17-59); BLOOD UREA NITROGEN 14 mg/dL (9-20); CALCIUM 8.6 mg/dl (8.6-10.4); GFR AFRICAN-AMERICAN > 60; GFR NON-AFRICAN AMERICAN > 60; MAGNESIUM 1.9 mg/dL (1.6-2.3)
[2017-11-29 08:32] LABS: RBC 5.38 Mil/uL (4.40-5.90); WHITE BLOOD COUNT 7.1 K/uL (4.8-10.8)
[2017-11-29 08:33] LABS: MEAN CELL VOLUME 94.8 fL (80.0-94.0); MEAN CORPUSCULAR HEMOGLOBIN 33.4 pg (27.0-31.0); MEAN CORPUSCULAR HGB CONC 35.3 g/dL (33.0-37.0); RED CELL DISTRIBUTION WIDTH 13.7 % (11.5-14.5)
[2017-11-29 08:34] LABS: LYMPH % 28.6 % (20.0-40.0); MEAN PLATELET VOLUME 7.3 fL (7.2-11.7); NEUT % 55.6 % (50.0-75.0)
[2017-11-29 08:36] LABS: BASO # 0.1 K/uL (0.0-0.2); BASO % 0.8 % (0.0-2.0); EOS # 0.2 K/uL (0.0-0.7); EOS % 2.2 % (0.0-4.0); MONO # 0.9 K/uL (0.0-0.8); MONO % 12.8 % (0.0-10.0); NEUT # 3.9 K/uL (1.8-7.0)
[2017-11-29 08:37] LABS: HEMOGLOBIN 15.4 g/dL (12.0-18.0)
[2017-11-29] MEDS ORDERED: Potassium Chloride 20 mEq ER Tab PO ONE (11:30)
--- NOTE | 2017-11-30 07:46 | CP.PCM.PN ---
Subjective - Date & Time of Evaluation Date of Evaluation: 11/30/17 Time of Evaluation: 07:45 - Subjective Subjective: Mr. Ryder was seen and examined at the bedside. He is alert, oriented claims of inability to sleep due to diarrhea episodes last night. Stool sample was sent.He denies any headache, blurred vision, nausea, or vomiting. He states of feeling weak due to his diarrhea. He is able to follow simple commands. He remains on telesitter for patient safety. There was no untoward events overnight. Objective - Vital Signs/Intake and Output Vital Signs (last 24 hours): Temp Pulse Resp BP Pulse Ox 98.3 F 80 20 153/94 H 97 11/30/17 04:10 11/30/17 04:10 11/30/17 04:10 11/30/17 04:10 11/30/17 04:10 Intake and Output: 11/30/17 11/30/17 06:59 18:59 Intake Total 120 Output Total 200 Balance -80 - Medications Medications: Current Medications Acetaminophen (Tylenol 325mg Tab) 650 mg PO Q6 PRN PRN Reason: Pain, Mild (1-3) Amlodipine Besylate (Norvasc) 10 mg PO DAILY [facility] Last Admin: 11/29/17 09:37 Dose: 10 mg Aspirin (Aspirin Chewable) 81 mg PO DAILY [facility] Last Admin: 11/29/17 09:37 Dose: 81 mg Benzocaine/Menthol (Cepacol Sore Throat) 1 tamia MT QID PRN PRN Reason: Sore Throat Last Admin: 11/28/17 10:52 Dose: 1 tamia Famotidine (Pepcid) 20 mg PO DAILY [facility] Last Admin: 11/29/17 09:37 Dose: 20 mg Heparin Sodium (Porcine) (Heparin) 5,000 units SC Q8 [facility] Last Admin: 11/30/17 05:33 Dose: 5,000 units Losartan Potassium (Cozaar) 50 mg PO DAILY [facility] Last Admin: 11/29/17 09:37 Dose: 50 mg Rosuvastatin Calcium (Crestor) 20 mg PO HS [facility] Last Admin: 11/29/17 21:40 Dose: 20 mg Temazepam (Restoril) 15 mg PO HS PRN PRN Reason: Insomnia Last Admin: 11/28/17 21:19 Dose: 15 mg - Labs Labs: 11/29/17 06:32 11/29/17 06:32 PT 12.4 SECONDS (9.7-12.2) H 11/28/17 22:10 INR 1.1 11/28/17 22:10 APTT 34 SECONDS (21-34) 11/28/17 22:10 - Constitutional Appears: No Acute Distress - Head Exam Head Exam: NORMAL INSPECTION - Neurological Exam Neurological Exam: Alert, Awake, Oriented x3 Neuro motor strength exam: Left Upper Extremity: 4, Right Upper Extremity: 5, Left Lower Extremity: 3, Right Lower Extremity: 5 Additional comments: Neurological unchanged from previous examination. Assessment and Plan (1) Ischemic stroke Assessment & Plan: Case discussed with Dr. Lopez, continue all current medical, physical, occupational therapies. Recommend social work specialist consult for medication procurement. Status: Acute
[2017-11-30 10:10] LABS: ALB/GLOB RATIO 1.1 (1.0-2.1); ALBUMIN 3.9 g/dL (3.5-5.0); ALT/SGPT 38 U/L (21-72); AST/SGOT 58 U/L (17-59); BLOOD UREA NITROGEN 14 mg/dL (9-20); CALCIUM 8.8 mg/dl (8.6-10.4); GFR AFRICAN-AMERICAN > 60; GFR NON-AFRICAN AMERICAN > 60
[2017-11-30] MEDS ORDERED: Potassium Chloride 20 mEq ER Tab PO ONE (11:15)
--- NOTE | 2017-11-30 11:28 | CP.PCM.PN ---
<Latha Sosa - Last Filed: 11/30/17 14:01> Subjective - Date & Time of Evaluation Date of Evaluation: 11/30/17 Time of Evaluation: 07:30 - Subjective Subjective: Patient seen and examined at bedside. Patient resting comfortably in bed but visibly frustrated and wanting to leave saying he just wants to go home. Patient had 5 episodes of non bloody diarrhea overnight with some abdominal pain. He denies nausea and vomiting, chest pain, SOB, fever, and chills. Objective - Vital Signs/Intake and Output Vital Signs (last 24 hours): Temp Pulse Resp BP Pulse Ox 97.4 F L 79 20 167/93 H 95 11/30/17 08:17 11/30/17 08:17 11/30/17 08:17 11/30/17 08:17 11/30/17 08:17 Intake and Output: 11/30/17 11/30/17 06:59 18:59 Intake Total 120 Output Total 200 Balance -80 - Medications Medications: Current Medications Acetaminophen (Tylenol 325mg Tab) 650 mg PO Q6 PRN PRN Reason: Pain, Mild (1-3) Amlodipine Besylate (Norvasc) 10 mg PO DAILY [facility] Last Admin: 11/30/17 09:50 Dose: 10 mg Aspirin (Aspirin Chewable) 81 mg PO DAILY [facility] [place] Last Admin: 11/30/17 09:50 Dose: 81 mg Benzocaine/Menthol (Cepacol Sore Throat) 1 tamia MT QID PRN PRN Reason: Sore Throat Last Admin: 11/28/17 10:52 Dose: 1 tamia Clopidogrel Bisulfate (Plavix) 75 mg PO DAILY [facility] [place] Last Admin: 11/30/17 09:50 Dose: 75 mg Famotidine (Pepcid) 20 mg PO DAILY [facility] [place] Last Admin: 11/30/17 09:50 Dose: 20 mg Heparin Sodium (Porcine) (Heparin) 5,000 units SC Q8 [facility] [place] Last Admin: 11/30/17 05:33 Dose: 5,000 units Losartan Potassium (Cozaar) 50 mg PO DAILY [facility] [place] Last Admin: 11/30/17 09:50 Dose: 50 mg Rosuvastatin Calcium (Crestor) 20 mg PO HS [facility] [place] Last Admin: 11/29/17 21:40 Dose: 20 mg Temazepam (Restoril) 15 mg PO HS PRN PRN Reason: Insomnia Last Admin: 11/28/17 21:19 Dose: 15 mg - Labs Labs: 11/29/17 06:32 11/30/17 07:03 PT 12.4 SECONDS (9.7-12.2) H 11/28/17 22:10 INR 1.1 11/28/17 22:10 APTT 34 SECONDS (21-34) 11/28/17 22:10 - Additional Findings Additional findings: - Constitutional Appears: No Acute Distress - Head Exam Head Exam: NORMAL INSPECTION, NORMOCEPHALIC - Eye Exam Eye Exam: EOMI, Normal appearance, PERRL Pupil Exam: NORMAL ACCOMODATION - ENT Exam ENT Exam: Mucous Membranes Moist - Neck Exam Neck Exam: Normal Inspection - Respiratory Exam Respiratory Exam: Clear to Ausculation Bilateral, NORMAL BREATHING PATTERN - Cardiovascular Exam Cardiovascular Exam: REGULAR RHYTHM Additional comments: left sided contusion noted, under axillary region - GI/Abdominal Exam GI & Abdominal Exam: Soft, Normal Bowel Sounds, tenderness (diffuse). absent: Distended - Extremities Exam Extremities Exam: Normal Inspection. absent: Pedal Edema, Tenderness - Neurological Exam Neurological Exam: Alert, Awake, CN II-XII Intact, Oriented x3 Neuro motor strength exam: Left Upper Extremity: 5, Right Upper Extremity: 4, Left Lower Extremity: 5, Right Lower Extremity: 4 - Psychiatric Exam Psychiatric exam: Normal Affect, Normal Mood - Skin Skin Exam: Dry, Intact, Normal Color, Warm Assessment and Plan - Assessment and Plan (Free Text) Plan: Disposition: Pending placement for half-way - pending case management to speak to family for support to fund rehab. Right MCA CVA Neurology consulted - Dr. Mei- help appreciated Not in window for TPA Permissive Hypertension SBP 180-190s/ 90s on admission Imaging: Head CT: Diffuse atrophy with prominence of the ventricles and sulci noted. No mass effect or edema. Numerous sub cm lacunar infarcts including bilateral basal ganglia and thalami. Scattered periventricular and subcortical white matter hypodensities, which are nonspecific, but often seen with chronic microvascular ischemic disease. Head/Neck CTA: There are partially calcified atherosclerotic plaque changes seen at the distal left common carotid artery/bifurcation extending into the proximal left internal carotid artery resulting in narrowing estimated at approximately 60 %. Carotid Dopplers show no stenosis ECHO: LVEF 44%, Type I diastolic Dysfunction Patient refuses MRI Meds: ASA, Plavix, Crestor Left Carotid Stenosis seen on Neck CTA Vascular surgery consult Dr. Rosario, help appreciated Carotid Dopplers studied revealed no stenosis No surgical intervention at this time Diarrhea 5 episode overnight (11/30) f/u stool studies replaced potassium for hypokalemia HTN Started on Norvasc 10mg PO daily, Cozaar 50mg PO daily S/P Code Star Rib Xray - no fractures noted Tobacco Use Disorder Smoking Cessation Patient refused Nicotine patch Prophylactic Measures GI PPX: Pepcid 20mg PO daily DVT PPX: SCDs, Heparin Q8H PT/OT: recommends Acute Rehab <Shalini Ramos - Last Filed: 11/30/17 15:01> Objective - Vital Signs/Intake and Output Vital Signs (last 24 hours): Temp Pulse Resp BP Pulse Ox 97.4 F L 79 20 167/93 H 95 11/30/17 08:17 11/30/17 08:17 11/30/17 08:17 11/30/17 08:17 11/30/17 08:17 Intake and Output: 11/30/17 11/30/17 06:59 18:59 Intake Total 120 Output Total 200 Balance -80 - Medications Medications: Current Medications Acetaminophen (Tylenol 325mg Tab) 650 mg PO Q6 PRN PRN Reason: Pain, Mild (1-3) Amlodipine Besylate (Norvasc) 10 mg PO DAILY [facility] Last Admin: 11/30/17 09:50 Dose: 10 mg Aspirin (Aspirin Chewable) 81 mg PO DAILY [facility] Last Admin: 11/30/17 09:50 Dose: 81 mg Benzocaine/Menthol (Cepacol Sore Throat) 1 tamia MT QID PRN PRN Reason: Sore Throat Last Admin: 11/28/17 10:52 Dose: 1 tamia Clopidogrel Bisulfate (Plavix) 75 mg PO DAILY [facility] Last Admin: 11/30/17 09:50 Dose: 75 mg Famotidine (Pepcid) 20 mg PO DAILY [facility] Last Admin: 11/30/17 09:50 Dose: 20 mg Heparin Sodium (Porcine) (Heparin) 5,000 units SC Q8 [facility] Last Admin: 11/30/17 13:29 Dose: 5,000 units Lactated Ringer's (Lactated Ringer's) 1,000 mls @ 100 mls/hr IV .Q10H [facility] Last Admin: 11/30/17 12:19 Dose: 100 mls/hr Losartan Potassium (Cozaar) 50 mg PO DAILY [facility] Last Admin: 11/30/17 09:50 Dose: 50 mg Rosuvastatin Calcium (Crestor) 20 mg PO HS [facility] Last Admin: 11/29/17 21:40 Dose: 20 mg Temazepam (Restoril) 15 mg PO HS PRN PRN Reason: Insomnia Last Admin: 11/28/17 21:19 Dose: 15 mg - Labs Labs: 11/29/17 06:32 11/30/17 07:03 PT 12.4 SECONDS (9.7-12.2) H 11/28/17 22:10 INR 1.1 11/28/17 22:10 APTT 34 SECONDS (21-34) 11/28/17 22:10 Attending/Attestation - Attestation I have personally seen and examined this patient.: Yes I have fully participated in the care of the patient.: Yes I have reviewed all pertinent clinical information, including history, physical exam and plan: Yes Notes (Text): complaining of diarrhea. started last night.denies abdominal pain,no vomiting, poor appetite He wants to go home patient feels tired and weak due to diarrhea He has unsteday gait and mild slurred speech. Patient states that his speech is always like this. He want to go home. Agree to stay until his brother visit. D/W SW patient's brother and patient is interested in paying for out pt PT We will start IV hydration,liquid diet as tolerated D/W Neuro REGULATORY SPECIALIST she states that Dr Cleaning think its better continue plavix and asprin. Started back on plavix stool CD toxin ordered BP is improving D/W the resident I agree with the assessment and the plan
[2017-11-30] MEDS: Lactated Ringer's 1,000 ML IV SCH ×2 (12:19→22:01)
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
[2017-12-01] MEDS: Lactated Ringer's 1,000 ML IV SCH (07:44)
--- NOTE | 2017-12-02 00:34 | CP.PCM.PN ---
<Giorgio Merritta - Last Filed: 12/02/17 00:32> Subjective - Date & Time of Evaluation Date of Evaluation: 12/02/17 Time of Evaluation: 00:33 - Subjective Subjective: Medicine Note for Hospitalist Service- Dr. Ramos Patient was seen and examined at bedside. No acute complaints. Patient is resting in bed comfortably. Denied fever, chills, headache, chest pain, SOB, abdominal pain, n/v/d/c, or urinary symptoms. Objective - Vital Signs/Intake and Output Vital Signs (last 24 hours): Temp Pulse Resp BP Pulse Ox 97.5 F L 75 20 159/81 H 96 12/01/17 16:00 12/01/17 18:35 12/01/17 16:00 12/01/17 16:00 12/01/17 16:00 Intake and Output: 12/01/17 12/02/17 18:59 06:59 Intake Total 640 Output Total 300 Balance 340 - Medications Medications: Current Medications Acetaminophen (Tylenol 325mg Tab) 650 mg PO Q6 PRN PRN Reason: Pain, Mild (1-3) Amlodipine Besylate (Norvasc) 10 mg PO DAILY [facility] Last Admin: 12/01/17 10:19 Dose: 10 mg Aspirin (Aspirin Chewable) 81 mg PO DAILY [facility] Last Admin: 12/01/17 10:18 Dose: 81 mg Benzocaine/Menthol (Cepacol Sore Throat) 1 tamia MT QID PRN PRN Reason: Sore Throat Last Admin: 11/28/17 10:52 Dose: 1 tamia Clopidogrel Bisulfate (Plavix) 75 mg PO DAILY [facility] Last Admin: 12/01/17 10:19 Dose: 75 mg Famotidine (Pepcid) 20 mg PO DAILY [facility] Last Admin: 12/01/17 10:19 Dose: 20 mg Heparin Sodium (Porcine) (Heparin) 5,000 units SC Q8 [facility] Last Admin: 12/01/17 21:13 Dose: 5,000 units Losartan Potassium (Cozaar) 50 mg PO DAILY [facility] Last Admin: 12/01/17 10:19 Dose: 50 mg Rosuvastatin Calcium (Crestor) 20 mg PO HS [facility] Last Admin: 12/01/17 21:13 Dose: 20 mg Temazepam (Restoril) 15 mg PO HS PRN PRN Reason: Insomnia Last Admin: 12/01/17 21:33 Dose: 15 mg - Labs Labs: 11/29/17 06:32 11/30/17 07:03 PT 12.4 SECONDS (9.7-12.2) H 11/28/17 22:10 INR 1.1 11/28/17 22:10 APTT 34 SECONDS (21-34) 11/28/17 22:10 - Additional Findings Additional findings: - Constitutional Appears: No Acute Distress - Head Exam Head Exam: NORMAL INSPECTION, NORMOCEPHALIC - Eye Exam Eye Exam: EOMI, Normal appearance, PERRL Pupil Exam: NORMAL ACCOMODATION - ENT Exam ENT Exam: Mucous Membranes Moist - Neck Exam Neck Exam: Normal Inspection - Respiratory Exam Respiratory Exam: Clear to Ausculation Bilateral, NORMAL BREATHING PATTERN - Cardiovascular Exam Cardiovascular Exam: REGULAR RHYTHM Additional comments: left sided contusion noted, under axillary region - GI/Abdominal Exam GI & Abdominal Exam: Soft, Normal Bowel Sounds, tenderness (diffuse). absent: Distended - Extremities Exam Extremities Exam: Normal Inspection. absent: Pedal Edema, Tenderness - Neurological Exam Neurological Exam: Alert, Awake, CN II-XII Intact, Oriented x3 Neuro motor strength exam: Left Upper Extremity: 5, Right Upper Extremity: 4, Left Lower Extremity: 5, Right Lower Extremity: 4 - Psychiatric Exam Psychiatric exam: Normal Affect, Normal Mood - Skin Skin Exam: Dry, Intact, Normal Color, Warm Assessment and Plan - Assessment and Plan (Free Text) Plan: Disposition: Pending placement for long term - pending case management to speak to family for support to fund rehab. Right MCA CVA Neurology consulted - Dr. Mei- help appreciated Not in window for TPA Permissive Hypertension SBP 180-190s/ 90s on admission Imaging: Head CT: Diffuse atrophy with prominence of the ventricles and sulci noted. No mass effect or edema. Numerous sub cm lacunar infarcts including bilateral basal ganglia and thalami. Scattered periventricular and subcortical white matter hypodensities, which are nonspecific, but often seen with chronic microvascular ischemic disease. Head/Neck CTA: There are partially calcified atherosclerotic plaque changes seen at the distal left common carotid artery/bifurcation extending into the proximal left internal carotid artery resulting in narrowing estimated at approximately 60 %. Carotid Dopplers show no stenosis ECHO: LVEF 44%, Type I diastolic Dysfunction Patient refuses MRI Meds: ASA, Plavix, Crestor Left Carotid Stenosis seen on Neck CTA Vascular surgery consult Dr. Rosario, help appreciated Carotid Dopplers studied revealed no stenosis No surgical intervention at this time Diarrhea 5 episode overnight (11/30) f/u stool studies: cdiff negative replaced potassium for hypokalemia HTN Started on Norvasc 10mg PO daily, Cozaar 50mg PO daily S/P Code Star Rib Xray - no fractures noted Tobacco Use Disorder Smoking Cessation Patient refused Nicotine patch Prophylactic Measures GI PPX: Pepcid 20mg PO daily DVT PPX: SCDs, Heparin Q8H PT/OT: recommends Acute Rehab DW Brenda Gutiérrez DO, PGY-1 <Shalini Ramos - Last Filed: 12/02/17 11:27> Objective - Vital Signs/Intake and Output Vital Signs (last 24 hours): Temp Pulse Resp BP Pulse Ox 98.4 F 73 20 170/82 H 97 12/02/17 08:00 12/02/17 08:00 12/02/17 08:00 12/02/17 08:00 12/02/17 08:00 Intake and Output: 12/02/17 12/02/17 06:59 18:59 Intake Total 800 Output Total 100 Balance 700 - Medications Medications: Current Medications Acetaminophen (Tylenol 325mg Tab) 650 mg PO Q6 PRN PRN Reason: Pain, Mild (1-3) Amlodipine Besylate (Norvasc) 10 mg PO DAILY [facility] Last Admin: 12/02/17 09:34 Dose: 10 mg Aspirin (Aspirin Chewable) 81 mg PO DAILY [facility] Last Admin: 12/02/17 09:34 Dose: 81 mg Benzocaine/Menthol (Cepacol Sore Throat) 1 tamia MT QID PRN PRN Reason: Sore Throat Last Admin: 11/28/17 10:52 Dose: 1 tamia Clopidogrel Bisulfate (Plavix) 75 mg PO DAILY [facility] Last Admin: 12/02/17 09:34 Dose: 75 mg Famotidine (Pepcid) 20 mg PO DAILY [facility] Last Admin: 12/02/17 09:34 Dose: 20 mg Heparin Sodium (Porcine) (Heparin) 5,000 units SC Q8 [facility] Last Admin: 12/02/17 05:57 Dose: 5,000 units Loperamide HCl (Imodium) 2 mg PO QID PRN PRN Reason: Diarrhea Losartan Potassium (Cozaar) 100 mg PO DAILY [facility] Last Admin: 12/02/17 09:34 Dose: 100 mg Rosuvastatin Calcium (Crestor) 20 mg PO HS [facility] Last Admin: 12/01/17 21:13 Dose: 20 mg Temazepam (Restoril) 15 mg PO HS PRN PRN Reason: Insomnia Last Admin: 12/01/17 21:33 Dose: 15 mg - Labs Labs: 11/29/17 06:32 11/30/17 07:03 PT 12.4 SECONDS (9.7-12.2) H 11/28/17 22:10 INR 1.1 11/28/17 22:10 APTT 34 SECONDS (21-34) 11/28/17 22:10 Attending/Attestation - Attestation I have personally seen and examined this patient.: Yes I have fully participated in the care of the patient.: Yes I have reviewed all pertinent clinical information, including history, physical exam and plan: Yes Notes (Text): Seen and examined he had diarrhea last night,no fever,no abdominal pain,no leukocytosis. stool cd toxin negative,ova parasites negative Watery stool. Asking for meds to control his diarrhea. try Imodium BP is high. Increase Losartan D/W brother about his medication ,high BP and unsteady gait. He will arrange out pt PT with SW to d/c him tomorrow. patient refuses MRI, Possible cerebellar infarct . He lives alone and has unsteady gait. Unsafe to d/c home
--- NOTE | 2017-12-02 11:26 | CP.PCM.PN ---
Subjective - Date & Time of Evaluation Date of Evaluation: 12/02/17 Time of Evaluation: 11:23 - Subjective Subjective: Mr. Ryder was seen and examined at the bedside. He is alert, oriented and claims of experiencing intermittent diarrhea since sunday. He denies any headache, dizziness, lightheadedness, nausea, blurred vision. He further states that he miss several of his physical therapy due to his weakness. He remains with mild dysarthia, left side weakness. He is able to follow simple commands. There was no untoward events overnight. Objective - Vital Signs/Intake and Output Vital Signs (last 24 hours): Temp Pulse Resp BP Pulse Ox 98.4 F 73 20 170/82 H 97 12/02/17 08:00 12/02/17 08:00 12/02/17 08:00 12/02/17 08:00 12/02/17 08:00 Intake and Output: 12/02/17 12/02/17 06:59 18:59 Intake Total 800 Output Total 100 Balance 700 - Medications Medications: Current Medications Acetaminophen (Tylenol 325mg Tab) 650 mg PO Q6 PRN PRN Reason: Pain, Mild (1-3) Amlodipine Besylate (Norvasc) 10 mg PO DAILY [facility] Last Admin: 12/02/17 09:34 Dose: 10 mg Aspirin (Aspirin Chewable) 81 mg PO DAILY [facility] Last Admin: 12/02/17 09:34 Dose: 81 mg Benzocaine/Menthol (Cepacol Sore Throat) 1 tamia MT QID PRN PRN Reason: Sore Throat Last Admin: 11/28/17 10:52 Dose: 1 tamia Clopidogrel Bisulfate (Plavix) 75 mg PO DAILY [facility] Last Admin: 12/02/17 09:34 Dose: 75 mg Famotidine (Pepcid) 20 mg PO DAILY [facility] Last Admin: 12/02/17 09:34 Dose: 20 mg Heparin Sodium (Porcine) (Heparin) 5,000 units SC Q8 [facility] Last Admin: 12/02/17 05:57 Dose: 5,000 units Loperamide HCl (Imodium) 2 mg PO QID PRN PRN Reason: Diarrhea Losartan Potassium (Cozaar) 100 mg PO DAILY [facility] Last Admin: 12/02/17 09:34 Dose: 100 mg Rosuvastatin Calcium (Crestor) 20 mg PO HS [facility] Last Admin: 12/01/17 21:13 Dose: 20 mg Temazepam (Restoril) 15 mg PO HS PRN PRN Reason: Insomnia Last Admin: 12/01/17 21:33 Dose: 15 mg - Labs Labs: 11/29/17 06:32 11/30/17 07:03 PT 12.4 SECONDS (9.7-12.2) H 11/28/17 22:10 INR 1.1 11/28/17 22:10 APTT 34 SECONDS (21-34) 11/28/17 22:10 - Constitutional Appears: No Acute Distress - Head Exam Head Exam: NORMAL INSPECTION - Neurological Exam Neurological Exam: Alert, Awake, Oriented x3 Neuro motor strength exam: Left Upper Extremity: 3, Right Upper Extremity: 5, Left Lower Extremity: 3, Right Lower Extremity: 5 Additional comments: Neurological unchanged from previous examination. Assessment and Plan (1) Ischemic stroke Assessment & Plan: Case discussed with Dr. Cleaning, continue all current medical, physical, occupational, and speech therapies. There is no new recommendations from neurology. Status: Acute
[2017-12-03 08:02] VITALS: BP 169/87; PULSE 74; RESP 20; TEMP 98; O2SAT 97
[2017-12-03 08:03] LABS: ALB/GLOB RATIO 1.1 (1.0-2.1); ALBUMIN 3.7 g/dL (3.5-5.0); ALT/SGPT 35 U/L (21-72); AST/SGOT 40 U/L (17-59); BLOOD UREA NITROGEN 12 mg/dL (9-20); CALCIUM 8.7 mg/dl (8.6-10.4); GFR AFRICAN-AMERICAN > 60; GFR NON-AFRICAN AMERICAN > 60; MAGNESIUM 2.1 mg/dL (1.6-2.3)
[2017-12-03 08:33] LABS: BASO # 0.1 K/uL (0.0-0.2); BASO % 1.1 % (0.0-2.0); EOS # 0.2 K/uL (0.0-0.7); EOS % 2.8 % (0.0-4.0); LYMPH # 2.6 K/uL (1.0-4.3); LYMPH % 30.7 % (20.0-40.0); MEAN CORPUSCULAR HEMOGLOBIN 34.1 pg (27.0-31.0); MEAN PLATELET VOLUME 7.3 fL (7.2-11.7); MONO # 0.9 K/uL (0.0-0.8); MONO % 10.8 % (0.0-10.0); NEUT # 4.6 K/uL (1.8-7.0); NEUT % 54.6 % (50.0-75.0); NRBC % 0.1 % (0.0-2.0); RBC 4.45 Mil/uL (4.40-5.90); RED CELL DISTRIBUTION WIDTH 13.5 % (11.5-14.5); WHITE BLOOD COUNT 8.4 K/uL (4.8-10.8)
--- NOTE | 2017-12-03 08:33 | CP.PCM.PN ---
Subjective - Date & Time of Evaluation Date of Evaluation: 12/03/17 Time of Evaluation: 08:30 - Subjective Subjective: Mr. Ryder was seen and examined at the bedside. He is alert, oriented in all spheres. He denies any headache, blurred vision, dizziness, diplopia, nauesea, or vomiting. He further states of his intermitent diarrhea improve and has more energy today to participate with his therapies. He remains with mild dysarthia, but claims of almost at his baseline. He is able to follow commands. He remains on telesitter for patient safety. There was no untoward events overnight. Objective - Vital Signs/Intake and Output Vital Signs (last 24 hours): Temp Pulse Resp BP Pulse Ox 98.0 F 74 20 169/87 H 97 12/03/17 08:00 12/03/17 08:00 12/03/17 08:00 12/03/17 08:00 12/03/17 08:00 - Medications Medications: Current Medications Acetaminophen (Tylenol 325mg Tab) 650 mg PO Q6 PRN PRN Reason: Pain, Mild (1-3) Amlodipine Besylate (Norvasc) 10 mg PO DAILY [facility] Last Admin: 12/02/17 09:34 Dose: 10 mg Aspirin (Aspirin Chewable) 81 mg PO DAILY [facility] Last Admin: 12/02/17 09:34 Dose: 81 mg Benzocaine/Menthol (Cepacol Sore Throat) 1 tamia MT QID PRN PRN Reason: Sore Throat Last Admin: 11/28/17 10:52 Dose: 1 tamia Clopidogrel Bisulfate (Plavix) 75 mg PO DAILY [facility] Last Admin: 12/02/17 09:34 Dose: 75 mg Famotidine (Pepcid) 20 mg PO DAILY [facility] Last Admin: 12/02/17 09:34 Dose: 20 mg Heparin Sodium (Porcine) (Heparin) 5,000 units SC Q8 [facility] Last Admin: 12/03/17 06:18 Dose: 5,000 units Loperamide HCl (Imodium) 2 mg PO QID PRN PRN Reason: Diarrhea Losartan Potassium (Cozaar) 100 mg PO DAILY [facility] Last Admin: 12/02/17 09:34 Dose: 100 mg Rosuvastatin Calcium (Crestor) 20 mg PO HS [facility] Last Admin: 12/02/17 21:11 Dose: 20 mg Temazepam (Restoril) 15 mg PO HS PRN PRN Reason: Insomnia Last Admin: 12/02/17 21:11 Dose: 15 mg - Labs Labs: 11/29/17 06:32 12/03/17 07:11 PT 12.4 SECONDS (9.7-12.2) H 11/28/17 22:10 INR 1.1 11/28/17 22:10 APTT 34 SECONDS (21-34) 11/28/17 22:10 - Constitutional Appears: No Acute Distress - Head Exam Head Exam: NORMAL INSPECTION - Neurological Exam Neurological Exam: Alert, Awake, Oriented x3 Neuro motor strength exam: Left Upper Extremity: 4, Right Upper Extremity: 5, Left Lower Extremity: 4, Right Lower Extremity: 5 Additional comments: Neurological unchanged from previous examination. Assessment and Plan (1) Ischemic stroke Assessment & Plan: Case discussed with Dr. Mei, continue all current medical, physical, and occupational therapies. Recommend to follow up with an outpatient neurologist upon discharge and blood pressure control. Status: Acute
[2017-12-03 08:38] LABS: HEMOGLOBIN 15.2 g/dL (12.0-18.0); MEAN CELL VOLUME 92.1 fL (80.0-94.0)
[2017-12-03] MEDS ORDERED: Potassium Chloride 20 mEq ER Tab PO ONE (10:30)
--- NOTE | 2017-12-03 11:48 | CP.PCM.DIS ---
<ShainaBrenda - Last Filed: 12/03/17 11:40> Provider - Provider Date of Admission: 11/24/17 11:39 Attending physician: Shalini Ramos MD Consults: Neuro: Dr. Mei Time Spent in preparation of Discharge (in minutes): 55 Hospital Course - Lab Results Lab Results: Micro Results 11/30/17 05:49 Stool Stool Culture - Final NO SALMONELLA, SHIGELLA OR CAMPYLOBACTER ISOLATED. 11/30/17 05:49 Stool Ova and Parasite Concentrate Exam - Final Most Recent Lab Values WBC 8.4 K/uL (4.8-10.8) 12/03/17 07:34 RBC 4.45 Mil/uL (4.40-5.90) 12/03/17 07:34 Hgb 15.2 g/dL (12.0-18.0) 12/03/17 07:34 Hct 41.0 % (35.0-51.0) 12/03/17 07:34 MCV 92.1 fL (80.0-94.0) D 12/03/17 07:34 MCH 34.1 pg (27.0-31.0) H 12/03/17 07:34 MCHC 37.0 g/dL (33.0-37.0) 12/03/17 07:34 RDW 13.5 % (11.5-14.5) 12/03/17 07:34 Plt Count 289 K/uL (130-400) 12/03/17 07:34 MPV 7.3 fL (7.2-11.7) 12/03/17 07:34 Neut % (Auto) 54.6 % (50.0-75.0) 12/03/17 07:34 Lymph % (Auto) 30.7 % (20.0-40.0) 12/03/17 07:34 Grayson % (Auto) 10.8 % (0.0-10.0) H 12/03/17 07:34 Eos % (Auto) 2.8 % (0.0-4.0) 12/03/17 07:34 Baso % (Auto) 1.1 % (0.0-2.0) 12/03/17 07:34 Neut # (Auto) 4.6 K/uL (1.8-7.0) 12/03/17 07:34 Lymph # (Auto) 2.6 K/uL (1.0-4.3) 12/03/17 07:34 Grayson # (Auto) 0.9 K/uL (0.0-0.8) H 12/03/17 07:34 Eos # (Auto) 0.2 K/uL (0.0-0.7) 12/03/17 07:34 Baso # (Auto) 0.1 K/uL (0.0-0.2) 12/03/17 07:34 PT 12.4 SECONDS (9.7-12.2) H 11/28/17 22:10 INR 1.1 11/28/17 22:10 APTT 34 SECONDS (21-34) 11/28/17 22:10 Sodium 130 mmol/L (132-148) L 12/03/17 07:11 Potassium 3.4 mmol/L (3.6-5.2) L 12/03/17 07:11 Chloride 95 mmol/L (98-107) L 12/03/17 07:11 Carbon Dioxide 25 mmol/L (22-30) 12/03/17 07:11 Anion Gap 14 (10-20) 12/03/17 07:11 BUN 12 mg/dL (9-20) 12/03/17 07:11 Creatinine 0.7 mg/dL (0.8-1.5) L 12/03/17 07:11 Est GFR ( Amer) > 60 12/03/17 07:11 Est GFR (Non-Af Amer) > 60 12/03/17 07:11 POC Glucose (mg/dL) 163 mg/dL (65-110) H 12/02/17 22:19 Random Glucose 128 mg/dL (75-110) H 12/03/17 07:11 Hemoglobin A1c 6.1 % (4.2-6.5) 11/24/17 10:08 Calcium 8.7 mg/dl (8.6-10.4) 12/03/17 07:11 Phosphorus 3.1 mg/dL (2.5-4.5) 12/03/17 07:11 Magnesium 2.1 mg/dL (1.6-2.3) 12/03/17 07:11 Total Bilirubin 0.5 mg/dL (0.2-1.3) 12/03/17 07:11 AST 40 U/L (17-59) 12/03/17 07:11 ALT 35 U/L (21-72) 12/03/17 07:11 Alkaline Phosphatase 75 U/L (38-126) 12/03/17 07:11 Total Creatine Kinase 1057 U/L (55-170) H 11/24/17 23:18 CK-MB (Mass) 3.15 ng/mL (0.0-3.38) 11/24/17 23:18 Troponin I 0.0180 ng/mL (0.00-0.120) 11/24/17 23:18 Total Protein 7.2 g/dL (6.3-8.3) 12/03/17 07:11 Albumin 3.7 g/dL (3.5-5.0) 12/03/17 07:11 Globulin 3.5 gm/dL (2.2-3.9) 12/03/17 07:11 Albumin/Globulin Ratio 1.1 (1.0-2.1) 12/03/17 07:11 Triglycerides 96 mg/dL (0-149) D 11/25/17 08:29 Cholesterol 155 mg/dL (0-199) 11/25/17 08:29 LDL Cholesterol Direct 73 mg/dL (0-129) 11/25/17 08:29 HDL Cholesterol 61 mg/dL (30-70) 11/25/17 08:29 Free T4 1.05 ng/dL (0.78-2.19) 11/24/17 15:11 TSH 3rd Generation 9.13 mIU/L (0.46-4.68) H 11/24/17 10:34 Urine Opiates Screen Negative (NEGATIVE) 11/24/17 13:47 Urine Methadone Screen Negative (NEGATIVE) 11/24/17 13:47 Ur Barbiturates Screen Negative (NEGATIVE) 11/24/17 13:47 Ur Phencyclidine Scrn Negative (NEGATIVE) 11/24/17 13:47 Ur Amphetamines Screen Negative (NEGATIVE) 11/24/17 13:47 U Benzodiazepines Scrn Negative (NEGATIVE) 11/24/17 13:47 U Oth Cocaine Metabols Negative (NEGATIVE) 11/24/17 13:47 U Cannabinoids Screen Negative (NEGATIVE) 11/24/17 13:47 C. difficile Ag & Toxin Negative (NEGATIVE) 11/30/17 05:30 Blood Type A POSITIVE 11/24/17 10:08 Antibody Screen Negative 11/24/17 10:08 - Hospital Course Hospital Course: Upon Admission: CC: Weakness This is a 56 year old male with no PMHx who comes in with left sided weakness. Patient reports that at around 11 PM last night, he felt some tingling sensation on the left side of his face around his jaw. He drank some water and went to sleep. Patient then woke up at 2 AM this morning and tried to get out of bed. Patient immediately proceeded to fall down and hit the left side of his body. Patient could not get himself up. He laid there until he was able to call his brother who lives nearby and called an ambulance. Patient reports that the paresthesia has improved but reports continued weakness. Denies changes in vision, headache, loss of consciousness, dizziness, chest pain, dyspnea, palpitations. Patient reports that he is tired because of his poor sleep. PMHx: Denies PSHx: Denies Allergies: NKA Social: Current smoker 1/2 ppd for the last 20-30 years. Social drinker. Denies drugs. Lives alone and is not employed. Family Hx: Mother with two TIA PMD: denies Home meds: denies Throughout Hospital Course: Right MCA CVA Neurology consulted - Dr. Mei- jacqueline appreciated Not in window for TPA Permissive Hypertension SBP 180-190s/ 90s on admission Imaging: Head CT: Diffuse atrophy with prominence of the ventricles and sulci noted. No mass effect or edema. Numerous sub cm lacunar infarcts including bilateral basal ganglia and thalami. Scattered periventricular and subcortical white matter hypodensities, which are nonspecific, but often seen with chronic microvascular ischemic disease. Head/Neck CTA: There are partially calcified atherosclerotic plaque changes seen at the distal left common carotid artery/bifurcation extending into the proximal left internal carotid artery resulting in narrowing estimated at approximately 60 %. Carotid Dopplers show no stenosis ECHO: LVEF 44%, Type I diastolic Dysfunction Patient refuses MRI Meds: ASA, Crestor (Spoke with Neurology, in light of epistaxis, patient can be discharged with ASA only) Left Carotid Stenosis seen on Neck CTA Vascular surgery consult Dr. Rosario, help appreciated Carotid Dopplers studied revealed no stenosis No surgical intervention at this time Diarrhea 5 episode overnight (11/30) f/u stool studies: cdiff negative, stool studies negative replaced potassium for hypokalemia HTN Started on Norvasc 10mg PO daily, Cozaar 100mg PO daily, Coreg 6.125mg PO BID S/P Code Star Rib Xray - no fractures noted Tobacco Use Disorder Smoking Cessation Patient refused Nicotine patch Prophylactic Measures GI PPX: Pepcid 20mg PO daily DVT PPX: SCDs, Heparin Q8H PT/OT: recommends Acute Rehab Family has arranged for home PT twice a week with [facility] Please make an appointment with [facility] within 1 week for management of your blood pressure and for referral for neurology. This is a brief summary of the patient's hospital course, please review EMR for full record. Discharge Exam - Additional Findings Additional findings: - Constitutional Appears: No Acute Distress - Head Exam Head Exam: NORMAL INSPECTION, NORMOCEPHALIC - Eye Exam Eye Exam: EOMI, Normal appearance, PERRL Pupil Exam: NORMAL ACCOMODATION - ENT Exam ENT Exam: Mucous Membranes Moist - Neck Exam Neck Exam: Normal Inspection - Respiratory Exam Respiratory Exam: Clear to Ausculation Bilateral, NORMAL BREATHING PATTERN - Cardiovascular Exam Cardiovascular Exam: REGULAR RHYTHM Additional comments: left sided contusion noted, under axillary region - GI/Abdominal Exam GI & Abdominal Exam: Soft, Normal Bowel Sounds, tenderness (diffuse). absent: Distended - Extremities Exam Extremities Exam: Normal Inspection. absent: Pedal Edema, Tenderness - Neurological Exam Neurological Exam: Alert, Awake, CN II-XII Intact, Oriented x3 Neuro motor strength exam: Left Upper Extremity: 5, Right Upper Extremity: 4, Left Lower Extremity: 5, Right Lower Extremity: 4 - Psychiatric Exam Psychiatric exam: Normal Affect, Normal Mood - Skin Skin Exam: Dry, Intact, Normal Color, Warm Discharge Plan - Discharge Medications Prescriptions: amLODIPine [Norvasc] 10 mg PO DAILY #30 tab Aspirin [Aspirin Chewable] 81 mg PO DAILY #30 chew Carvedilol [Coreg] 6.25 mg PO BID #60 tab Famotidine [Pepcid] 20 mg PO DAILY #30 tab Losartan [Cozaar] 100 mg PO DAILY #30 tab Rosuvastatin Calcium [Crestor] 20 mg PO HS #30 tab - Follow Up Plan Condition: STABLE Disposition: HOME/ ROUTINE Instructions: Heart Healthy Diet, Quitting Smoking for Older Adults, Stroke (DC ), Quitting Smoking, Amlodipine, Aspirin, Famotidine, Losartan, Rosuvastatin Additional Instructions: Please continue to the take the following medications DAILY! A list will be provided for you indicating what to take and when to take them. Please make an appointment with the [facility] so we can monitor your blood pressure, provide a referral for Neurology and to help with a referral for home PT. Please return to the ED if your symptoms worsen or persist. Referrals: [facility] at [facility] [Outside] <Fuad Carreon - Last Filed: 12/03/17 13:51> Provider - Provider Date of Admission: 11/24/17 11:39 Attending physician: Shalini Ramos MD Hospital Course - Lab Results Lab Results: Micro Results 11/30/17 05:49 Stool Stool Culture - Final NO SALMONELLA, SHIGELLA OR CAMPYLOBACTER ISOLATED. 11/30/17 05:49 Stool Ova and Parasite Concentrate Exam - Final Most Recent Lab Values WBC 8.4 K/uL (4.8-10.8) 12/03/17 07:34 RBC 4.45 Mil/uL (4.40-5.90) 12/03/17 07:34 Hgb 15.2 g/dL (12.0-18.0) 12/03/17 07:34 Hct 41.0 % (35.0-51.0) 12/03/17 07:34 MCV 92.1 fL (80.0-94.0) D 12/03/17 07:34 MCH 34.1 pg (27.0-31.0) H 12/03/17 07:34 MCHC 37.0 g/dL (33.0-37.0) 12/03/17 07:34 RDW 13.5 % (11.5-14.5) 12/03/17 07:34 Plt Count 289 K/uL (130-400) 12/03/17 07:34 MPV 7.3 fL (7.2-11.7) 12/03/17 07:34 Neut % (Auto) 54.6 % (50.0-75.0) 12/03/17 07:34 Lymph % (Auto) 30.7 % (20.0-40.0) 12/03/17 07:34 Grayson % (Auto) 10.8 % (0.0-10.0) H 12/03/17 07:34 Eos % (Auto) 2.8 % (0.0-4.0) 12/03/17 07:34 Baso % (Auto) 1.1 % (0.0-2.0) 12/03/17 07:34 Neut # (Auto) 4.6 K/uL (1.8-7.0) 12/03/17 07:34 Lymph # (Auto) 2.6 K/uL (1.0-4.3) 12/03/17 07:34 Grayson # (Auto) 0.9 K/uL (0.0-0.8) H 12/03/17 07:34 Eos # (Auto) 0.2 K/uL (0.0-0.7) 12/03/17 07:34 Baso # (Auto) 0.1 K/uL (0.0-0.2) 12/03/17 07:34 PT 12.4 SECONDS (9.7-12.2) H 11/28/17 22:10 INR 1.1 11/28/17 22:10 APTT 34 SECONDS (21-34) 11/28/17 22:10 Sodium 130 mmol/L (132-148) L 12/03/17 07:11 Potassium 3.4 mmol/L (3.6-5.2) L 12/03/17 07:11 Chloride 95 mmol/L (98-107) L 12/03/17 07:11 Carbon Dioxide 25 mmol/L (22-30) 12/03/17 07:11 Anion Gap 14 (10-20) 12/03/17 07:11 BUN 12 mg/dL (9-20) 12/03/17 07:11 Creatinine 0.7 mg/dL (0.8-1.5) L 12/03/17 07:11 Est GFR ( Amer) > 60 12/03/17 07:11 Est GFR (Non-Af Amer) > 60 12/03/17 07:11 POC Glucose (mg/dL) 130 mg/dL (65-110) H 12/03/17 11:32 Random Glucose 128 mg/dL (75-110) H 12/03/17 07:11 Hemoglobin A1c 6.1 % (4.2-6.5) 11/24/17 10:08 Calcium 8.7 mg/dl (8.6-10.4) 12/03/17 07:11 Phosphorus 3.1 mg/dL (2.5-4.5) 12/03/17 07:11 Magnesium 2.1 mg/dL (1.6-2.3) 12/03/17 07:11 Total Bilirubin 0.5 mg/dL (0.2-1.3) 12/03/17 07:11 AST 40 U/L (17-59) 12/03/17 07:11 ALT 35 U/L (21-72) 12/03/17 07:11 Alkaline Phosphatase 75 U/L (38-126) 12/03/17 07:11 Total Creatine Kinase 1057 U/L (55-170) H 11/24/17 23:18 CK-MB (Mass) 3.15 ng/mL (0.0-3.38) 11/24/17 23:18 Troponin I 0.0180 ng/mL (0.00-0.120) 11/24/17 23:18 Total Protein 7.2 g/dL (6.3-8.3) 12/03/17 07:11 Albumin 3.7 g/dL (3.5-5.0) 12/03/17 07:11 Globulin 3.5 gm/dL (2.2-3.9) 12/03/17 07:11 Albumin/Globulin Ratio 1.1 (1.0-2.1) 12/03/17 07:11 Triglycerides 96 mg/dL (0-149) D 11/25/17 08:29 Cholesterol 155 mg/dL (0-199) 11/25/17 08:29 LDL Cholesterol Direct 73 mg/dL (0-129) 11/25/17 08:29 HDL Cholesterol 61 mg/dL (30-70) 11/25/17 08:29 Free T4 1.05 ng/dL (0.78-2.19) 11/24/17 15:11 TSH 3rd Generation 9.13 mIU/L (0.46-4.68) H 11/24/17 10:34 Urine Opiates Screen Negative (NEGATIVE) 11/24/17 13:47 Urine Methadone Screen Negative (NEGATIVE) 11/24/17 13:47 Ur Barbiturates Screen Negative (NEGATIVE) 11/24/17 13:47 Ur Phencyclidine Scrn Negative (NEGATIVE) 11/24/17 13:47 Ur Amphetamines Screen Negative (NEGATIVE) 11/24/17 13:47 U Benzodiazepines Scrn Negative (NEGATIVE) 11/24/17 13:47 U Oth Cocaine Metabols Negative (NEGATIVE) 11/24/17 13:47 U Cannabinoids Screen Negative (NEGATIVE) 11/24/17 13:47 C. difficile Ag & Toxin Negative (NEGATIVE) 11/30/17 05:30 Blood Type A POSITIVE 11/24/17 10:08 Antibody Screen Negative 11/24/17 10:08 Attending/Attestation - Attestation I have personally seen and examined this patient.: Yes I have fully participated in the care of the patient.: Yes I have reviewed all pertinent clinical information, including history, physical exam and plan: Yes Notes (Text): Medical attending: Patient was seen and examined by me, I saw the patient together with the medical record administrator and agree with the above note by the resident. The last time I saw the patient was on Sunday the previous week was here. We had brought him in due to a code stroke. His risk factors include heavy cigarette smoking, hypertension. Since that time he's regained a lot of strength back in his left upper and left lower extremity. He is able to move yesterday we utilize a rolling walker. Blood pressure is elevated, because of his history we've elected to start additional medication Coreg 6.25 by mouth twice a day to be taken on top of the other medication that he is already on for blood pressure Caseworkers got back to us and said that he is going to have outpatient physical therapy done The patient understands that he needs to follow-up with us here at [facility] ([facility]3] at the [facility] - and this is referred regard to his elevated blood pressure He also understands that he needs to avoid further cigarette smoking as he is at risk for further harm due to this. He will need to be on a statin, aspirin, BP medications Should be noted that while he's been here he's refused several times a MRI of the brain to assess for the areas of the CVA. He did get a repeat CAT scan however this repeat CAT scan was negative judging from his physical exam he still has an minimal slurry speech change as well as a small left nasal, labial area facial droop. Thank you very much, Fuad Carreon
== END 2017-12-03 16:15 | disposition home or self-care (01) | DRG 14 ==
LOC: C.ER 09:55 → C.9E 11:39 → C.6T 15:37
PROVIDERS: ADMIT Hospitalist; ATTEND Internal Medicine
DX: I63.511 Cerebral infarction due to unspecified occlusion or stenosis of right middle cerebral artery (principal); F17.210 Nicotine dependence, cigarettes, uncomplicated; G47.00 Insomnia, unspecified; I65.22 Occlusion and stenosis of left carotid artery; I10 Essential (primary) hypertension; R04.0 Epistaxis; R29.810 Facial weakness; Z86.73 Personal history of transient ischemic attack (TIA), and cerebral infarction without residual deficits; R10.9 Unspecified abdominal pain; R19.7 Diarrhea, unspecified